=== PATIENT | female | born 1990 | race Caucasian/White ===

== ENCOUNTER 2016-05-08 12:38 | Emergency (ER) | payer MEDICAID ==
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
[2016-05-08] MEDS ORDERED: LORAZEPAM 0.5 MG TABLET PO ONE (13:03)
[2016-05-08 13:37] LABS: URINE APPEARANCE CLEAR; URINE BILIRUBIN NEGATIVE (NEGATIVE); URINE BLOOD NEGATIVE (NEGATIVE); URINE COLOR YELLOW; URINE GLUCOSE (UA) NEGATIVE (NEGATIVE); URINE KETONE NEGATIVE (NEGATIVE); URINE LEUKOCYTE ESTERASE TRACE (NEGATIVE); URINE NITRITE NEGATIVE (NEGATIVE); URINE PROTEIN NEGATIVE (NEGATIVE); URINE UROBILINOGEN 0.2 E.U./dL (0.20 - 1.00)
[2016-05-08 13:49] LABS: URINE BACTERIA FEW; URINE MUCUS HEAVY; URINE RBC 0 - 2 (NONE SEEN); URINE SQUAMOUS EPITHELIAL CELL 16 - 20 /hpf
--- NOTE | 2016-05-13 10:03 | RADIOLOGY REPORT ---
EXAM: CHEST, TWO VIEWS HISTORY: CHEST INJURY, DIFFUSE CHEST PAIN. TECHNIQUE: Two views of the chest were obtained. Comparison: Chest x-ray 06/17/15. Encounter: Initial. FINDINGS: The lungs are clear. The cardiomediastinal silhouette, diaphragm, and osseous structures are unremarkable for age. IMPRESSION: NEGATIVE CHEST EXAMINATION. JOB NUMBER: [id number] MTDD
== END 2016-05-08 14:40 | disposition home or self-care (01) ==
LOC: ER 12:38
DX: S20.212A Contusion of left front wall of thorax, initial encounter (principal); R06.02 Shortness of breath; W51.XXXA Accidental striking against or bumped into by another person, initial encounter
CPT/HCPCS: 71020; 81001; 81025; 99283; 99284

== ENCOUNTER 2016-05-23 11:22 | Emergency (ER) | payer SELFPAY ==
[2016-05-23] MEDS ORDERED: ORPHENADRINE CITRATE 60MG/2ML VIAL IM ONE (12:13)
[2016-05-23] MEDS ORDERED: PROMETHAZINE HCL 25 MG/ML VIAL IM ONE (12:13)
[2016-05-23] MEDS ORDERED: HYDROMORPHONE HCL 1 MG/ML CPJ IM ONE (12:13)
[2016-05-23] MEDS ORDERED: KETOROLAC 30 MG/ML VIAL IM ONE (12:13)
--- NOTE | 2016-05-23 12:25 | Emergency Department Record ---
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 the pain is in the lower back on the right and radiates down the right leg with some tingling in her toes. no problems with bowel or bladder MD Complaint: Back pain Onset/Timin -: Days(s) Similar Symptoms Previously: No Place: Work Radiation: Right leg Severity: Moderate, Severe Severity scale (1-10): 9 Quality: Sharp Consistency: Intermittent Improves With: Immobilization Worsens With: Movement Context: While lifting Treatments Prior to Arrival: Cold therapy, Heat therapy, Other medications - Related Data Home Medications Medication Instructions Recorded Confirmed Last Taken Albuterol Sulfate [Ventolin Hfa] 1 - 2 puff IH .EVERY 4-6 HOURS PRN 05/08/1602/2605/08/16 Previous Rx's Medication Instructions Recorded Cyclobenzaprine HCl [Flexeril] 10 mg PO TID #14 tablet 05/23/16 Hydrocodone/Acetaminophen [[place] 1 tab PO Q6H PRN #7 tab 05/23/16 5mg/325mg] Ibuprofen [Motrin 600Mg] 600 mg PO Q6H #20 tablet 05/23/16 Allergies Allergy/AdvReac Type Severity Reaction Status Date / Time marijuana Allergy ANAPHYLAXIS Verified 05/08/16 12:45 Travel Screening - Travel/Exposure Within Last 30 Days Have you traveled within the last 30 days?: No - Travel/Exposure Within Last Year Have you traveled outside the [place] in the last year?: No - Additonal Travel Details Have you been exposed to anyone with a communicable illness?: No Review of Systems Reviewed: No additional complaints except as noted below Constitutional: Reports: As per HPI. Denies: Chills, Fever, Malaise, Night sweats, Weakness, Weight change Eyes: Reports: As per HPI. Denies: Eye discharge, Eye pain, Photophobia, Vision change ENT: Reports: As per HPI. Denies: Congestion, Dental pain, Ear pain, Epistaxis , Hearing loss, Throat pain Respiratory: Reports: As per HPI. Denies: Cough, Dyspnea, Hemoptysis, Stridor, Wheezes Cardiovascular: Reports: As per HPI. Denies: Arrhythmia, Chest pain, Dyspnea on exertion, Edema, Murmurs, Orthopnea, Palpitations, Paroxysmal nocturnal dyspnea, Rheumatic Fever, Syncope Endocrine: Reports: As per HPI. Denies: Fatigue, Heat or cold intolerance, Polydipsia, Polyuria Gastrointestinal: Reports: As per HPI. Denies: Abdominal pain, Constipation, Diarrhea, Hematemesis, Hematochezia, Melena, Nausea, Vomiting Genitourinary: Reports: As per HPI. Denies: Abnormal menses, Discharge, Dyspareunia, Dysuria, Frequency, Hematuria, Incontinence, Retention, Urgency Musculoskeletal: Reports: As per HPI. Denies: Arthralgia, Back pain, Gout, Joint swelling, Myalgia, Neck pain Skin: Reports: As per HPI. Denies: Bruising, Change in color, Change in hair/ nails, Lesions, Pruritus, Rash Neurological: Reports: As per HPI. Denies: Abnormal gait, Confusion, Headache, Numbness, Paresthesias, Seizure, Tingling, Tremors, Vertigo, Weakness Psychiatric: Reports: As per HPI. Denies: Anxiety, Auditory hallucinations, Depression, Homicidal thoughts, Suicidal thoughts, Visual hallucinations Hematological/Lymphatic: Reports: As per HPI. 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) - RESPIRATORY Hx Respiratory Disorders: Yes Hx Bronchitis: Yes (chronic) Hx Pneumonia: Yes (<1yr ago) - CARDIOVASCULAR Hx Cardio Disorders: No - NEURO Hx Neuro Disorders: Yes Hx Headaches: Yes (hx of migraines) - GI Hx GI Disorders: No - Hx Genitourinary Disorders: No - ENDOCRINE Hx Endocrine Disorders: No Hx Diabetes: No Hx Thyroid Disease: No - MUSCULOSKELETAL Hx Musculoskeletal Disorders: No - PSYCH Hx Psych Problems: Yes Comment:: Autism - HEMATOLOGY/ONCOLOGY Hx Hematology/Oncology Disorders: No Family Medical History Any Significant Family History?: Yes Hx Alcohol Use: Father, Brother/Sister Hx Anxiety: Father, Mother, Brother/Sister, Grandparents Hx Depression: Father, Mother, Brother/Sister, Grandparents Hx Diabetes: Mother, Grandparents Hx Heart Disease: Father, Mother, Grandparents Hx HTN: Father, Mother, Grandparents Hx Kidney Disease: Mother Hx Stroke: Mother, Grandparents *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 negative: External canal tenderness Nasal Exam: Normal inspection. negative: Discharge, Sinus tenderness Mouth exam: Normal external inspection, Tongue normal Teeth exam: Normal inspection. negative: Dental caries Throat exam: Normal inspection. negative: Tonsillar erythema, Tonsillar exudate - Neck Neck exam: Normal inspection, Full ROM. negative: Tenderness - Respiratory Respiratory exam: Normal lung sounds bilaterally. negative: Respiratory distress - Cardiovascular Cardiovascular Exam: Regular rate, Normal rhythm, Normal heart sounds - GI/Abdominal GI/Abdominal exam: Soft, Normal bowel sounds. negative: Tenderness - Rectal Rectal exam: Deferred - exam: Deferred - Extremities Extremities exam: Normal inspection, Full ROM, Normal capillary refill. negative: Tenderness - Back Back exam: Reports: Muscle spasm, Paraspinal tenderness, Tenderness. Denies: Full ROM, Rash noted - Neurological Neurological exam: Alert, CN II-XII intact, Normal gait, Oriented X3 - Psychiatric Psychiatric exam: Normal affect, Normal mood - Skin Skin exam: Dry, Intact, Normal color, Warm Course Vital Signs 05/23/16 11:28 Temperature 97.2 F L Pulse Rate 72 Respiratory 14 Rate Blood Pressure 130/82 Pulse Ox 97 Disposition Disposition: Discharge Clinical Impression: Acute Lumbar Radiculopathy Disposition: Home, Self-Care Condition: (1) Good Instructions: Lumbar Radiculopathy (ED) Additional Instructions: follow up with family doctor. ice to sore area for 2 days. no lifting more then 5lbs for 5 days. Prescriptions: Cyclobenzaprine HCl [Flexeril] 10 mg PO TID #14 tablet Ibuprofen [Motrin 600Mg] 600 mg PO Q6H #20 tablet Hydrocodone/Acetaminophen [[place] 5mg/325mg] 1 tab PO Q6H PRN #7 tab PRN Reason: Pain - General Forms: Patient Portal Access
== END 2016-05-23 14:18 | disposition home or self-care (01) ==
LOC: ER 11:22
DX: M54.16 Radiculopathy, lumbar region (principal)
CPT/HCPCS: J1885; J1170; 96372; 99283; J2360; J2550

== ENCOUNTER 2016-05-31 19:47 | Emergency (ER) | payer SELFPAY ==
[2016-05-31] MEDS ORDERED: KETOROLAC 60 MG/2 ML VIAL IM STA (20:44)
[2016-05-31] MEDS ORDERED: DIAZEPAM 5 MG/1 ML TUBX IM ONE (20:44)
--- NOTE | 2016-05-31 20:49 | Emergency Department Record ---
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 Patient reports that she has taken Flexeril and Ibuprofen at home which have helped somewhat as well. Patient denies numbness, tingling, lower extremity weakness, or urinary retention symptoms. Patient denies health problems other than being "overweight". MD Complaint: Back pain, Back injury Onset/Timin -: Week(s) Similar Symptoms Previously: Yes Place: Home Radiation: None Severity: Mild Severity scale (1-10): 7 Quality: Other Consistency: Other Improves With: None Worsens With: None Context: Unknown Associated Symptoms: Denies other symptoms Treatments Prior to Arrival: NSAIDS, Other - Related Data Home Medications Medication Instructions Recorded Confirmed Last Taken Famotidine [Pepcid] 20 mg PO DAILY 05/31/16 05/31/16 Unknown Hydroxyzine Pamoate [Vistaril] 50 mg PO ASDIR 05/31/16 05/31/16 Unknown Previous Rx's Medication Instructions Recorded Diazepam [Valium] 5 mg PO Q8H #10 tab 05/31/16 Naproxen [Naprosyn] 500 mg PO Q12H #30 tab. 05/31/16 Allergies Allergy/AdvReac Type Severity Reaction Status Date / Time marijuana Allergy ANAPHYLAXIS Verified 05/08/16 12:45 scallops Allergy HIVES Verified 05/31/16 20:33 Travel Screening - Travel/Exposure Within Last 30 Days Have you traveled within the last 30 days?: No - Travel/Exposure Within Last Year Have you traveled outside the [place] in the last year?: No - Additonal Travel Details Have you been exposed to anyone with a communicable illness?: No - Travel Symptoms Symptom Screening: None Review of Systems Constitutional: Denies: Chills, Fever, Malaise, Night sweats Eyes: Denies: Eye discharge, Eye pain ENT: Denies: Congestion, Ear pain, Epistaxis Respiratory: Denies: Cough, Dyspnea Cardiovascular: Denies: Chest pain, Dyspnea on exertion Endocrine: Denies: Fatigue, Heat or cold intolerance Gastrointestinal: Denies: Abdominal pain, Nausea, Vomiting Genitourinary: Denies: Dysuria, Frequency, Hematuria Musculoskeletal: Reports: Back pain. 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) - RESPIRATORY Hx Respiratory Disorders: Yes Hx Bronchitis: Yes (chronic) Hx Pneumonia: Yes (<1yr ago) - CARDIOVASCULAR Hx Cardio Disorders: No - NEURO Hx Neuro Disorders: Yes Hx Headaches: Yes (hx of migraines) - GI Hx GI Disorders: No - Hx Genitourinary Disorders: No - ENDOCRINE Hx Endocrine Disorders: No Hx Diabetes: No Hx Thyroid Disease: No - MUSCULOSKELETAL Hx Musculoskeletal Disorders: No - PSYCH Hx Psych Problems: Yes Comment:: Autism - HEMATOLOGY/ONCOLOGY Hx Hematology/Oncology Disorders: No Family Medical History Any Significant Family History?: No Hx Alcohol Use: Father, Brother/Sister Hx Anxiety: Father, Mother, Brother/Sister, Grandparents Hx Depression: Father, Mother, Brother/Sister, Grandparents Hx Diabetes: Mother, Grandparents Hx Heart Disease: Father, Mother, Grandparents Hx HTN: Father, Mother, Grandparents Hx Kidney Disease: Mother Hx Stroke: Mother, Grandparents *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 negative: Conjunctival injection, Periorbital swelling, Periorbital tenderness, Scleral icterus - ENT Ear exam: negative: Auricular hematoma, Auricular trauma Nasal Exam: negative: Active bleeding, Discharge, Dried blood, Foreign body Mouth exam: negative: Drooling, Laceration, Muffled voice, Tongue elevation - Neck Neck exam: Normal inspection. negative: Meningismus, Tenderness - Respiratory Respiratory exam: Normal lung sounds bilaterally. negative: Rales, Respiratory distress, Rhonchi, Stridor - Cardiovascular Cardiovascular Exam: Regular rate, Normal rhythm, Normal heart sounds - Rectal Rectal exam: Deferred - exam: Deferred - Extremities Extremities exam: Normal inspection. negative: Calf tenderness, Pedal edema, Tenderness - Back Back exam: Reports: Paraspinal tenderness (right lumbar region). Denies: Rash noted - Neurological Neurological exam: Alert, Oriented X3. negative: Motor sensory deficit - Psychiatric Psychiatric exam: Normal affect, Normal mood - Skin Skin exam: Normal color. negative: Abrasion Type of lesion: negative: abrasion Course Vital Signs 05/31/16 20:15 Temperature 98.7 F Pulse Rate 75 Respiratory 20 Rate Blood Pressure 133/84 Pulse Ox 99 - Reevaluation(s) Reevaluation #1: 05/31/16 21:56 UA reviewed and appears normal. Lumbar spine: Mild degenerative changes, transition segment at S1, nothing acute. Patient was reassessed, now laying on her side on her mobile phone, smiling, and appears significantly more comfortable on examination. Patient has no clinical signs or historical features c/w spinal compression syndrome. Patient appears stable for discharge at this time on Valium and Naprosyn as directed. 05/31/16 22:01 Disposition Disposition: Discharge Clinical Impression: Low back strain Qualifiers: Encounter type: initial encounter Qualified Code(s): S39.012A - Strain of muscle, fascia and tendon of lower back, initial encounter Disposition: Home, Self-Care Condition: (2) Stable Instructions: Low Back Strain (ED) Additional Instructions: Return to ED if your symptoms worsen or if you have any concerns. Valium and Naprosyn as directed. Follow-up with your family doctor in 3-5 days as directed. Prescriptions: Naproxen [Naprosyn] 500 mg PO Q12H #30 tab. Diazepam [Valium] 5 mg PO Q8H #10 tab Forms: Patient Portal Access Time of Disposition: 22:01
[2016-05-31 20:50] LABS: URINE APPEARANCE CLEAR; URINE BILIRUBIN NEGATIVE (NEGATIVE); URINE BLOOD NEGATIVE (NEGATIVE); URINE COLOR YELLOW; URINE GLUCOSE (UA) NEGATIVE (NEGATIVE); URINE KETONE NEGATIVE (NEGATIVE); URINE LEUKOCYTE ESTERASE NEGATIVE (NEGATIVE); URINE NITRITE NEGATIVE (NEGATIVE); URINE PROTEIN NEGATIVE (NEGATIVE); URINE UROBILINOGEN 0.2 E.U./dL (0.20 - 1.00)
[2016-05-31 20:52] LABS: HCG,QUALITATIVE URINE NEGATIVE (NEGATIVE)
== END 2016-05-31 22:16 | disposition home or self-care (01) ==
LOC: ER 19:47
DX: S39.012A Strain of muscle, fascia and tendon of lower back, initial encounter (principal); X50.9XXA Other and unspecified overexertion or strenuous movements or postures, initial encounter; Y93.F2 Activity, caregiving, lifting; Y92.129 Unspecified place in nursing home as the place of occurrence of the external cause; Y99.0 Civilian activity done for income or pay
CPT/HCPCS: 72100; 81003; 81025; 96372; 99283; 99284; J1885; J3360

== ENCOUNTER 2016-06-01 20:58 | Emergency (ER) | payer SELFPAY ==
--- NOTE | 2016-06-01 21:28 | Emergency Department Record ---
History of Present Illness - General Chief complaint: Allergic Reaction Stated complaint: NO FEELING IN R SIDE OF FACE Time Seen by Provider: 06/01/16 21:22 Source: Patient Mode of Arrival: Ambulatory Limitations: No limitations - History of Present Illness Initial Comments: 25 yo female returns to ED with a CC of right sided facial numbness that begins approximately 45 minutes after taking Valium that was previously prescribed for a low back strain and lasts 3-4 hours after taking the medication before resolving. Patient reports that she has taken the medication at 6:00 AM, 3:00 PM, and 7:00 PM tonight with the same effects. Patient denies facial muscle weakness or paralysis, rash, difficulty breathing/swallowing, or other neurologic complaint. Patient denies any focal weakness on examination. Onset/Timin -: Days(s) Exposure: Medication Symptoms: Other (numbness) Severity: Mild Treatment Prior to Arrival: None Previous Allergy History: None - Related Data Home Medications Medication Instructions Recorded Confirmed Last Taken Famotidine [Pepcid] 20 mg PO DAILY 05/31/16 05/31/16 Unknown Hydroxyzine Pamoate [Vistaril] 50 mg PO ASDIR 05/31/16 05/31/16 Unknown Previous Rx's Medication Instructions Recorded Diazepam [Valium] 5 mg PO Q8H #10 tab 05/31/16 Naproxen [Naprosyn] 500 mg PO Q12H #30 tab 05/31/16 Cyclobenzaprine HCl [Flexeril] 10 mg PO TID PRN #5 tablet 06/01/16 Allergies Allergy/AdvReac Type Severity Reaction Status Date / Time marijuana Allergy ANAPHYLAXIS Verified 05/08/16 12:45 scallops Allergy HIVES Verified 05/31/16 20:33 Review of Systems Constitutional: Denies: Chills, Fever, Malaise, Night sweats Eyes: Denies: Eye discharge, Eye pain ENT: Denies: Congestion, Ear pain, Epistaxis Respiratory: Denies: Cough, Dyspnea Cardiovascular: Denies: Chest pain, Edema Endocrine: Denies: Fatigue, Heat or cold intolerance Gastrointestinal: Denies: Abdominal pain, Nausea, Vomiting Genitourinary: Denies: Dysuria, Frequency, Hematuria, Incontinence Musculoskeletal: Reports: Back pain. Denies: Arthralgia Skin: Denies: Bruising, Change in color Neurological: Reports: Numbness. 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) - RESPIRATORY Hx Respiratory Disorders: Yes Hx Bronchitis: Yes (chronic) Hx Pneumonia: Yes (<1yr ago) - CARDIOVASCULAR Hx Cardio Disorders: No - NEURO Hx Neuro Disorders: Yes Hx Headaches: Yes (hx of migraines) - GI Hx GI Disorders: No - Hx Genitourinary Disorders: No - ENDOCRINE Hx Endocrine Disorders: No Hx Diabetes: No Hx Thyroid Disease: No - MUSCULOSKELETAL Hx Musculoskeletal Disorders: No - PSYCH Hx Psych Problems: Yes Comment:: Autism - HEMATOLOGY/ONCOLOGY Hx Hematology/Oncology Disorders: No Family Medical History Hx Alcohol Use: Father, Brother/Sister Hx Anxiety: Father, Mother, Brother/Sister, Grandparents Hx Depression: Father, Mother, Brother/Sister, Grandparents Hx Diabetes: Mother, Grandparents Hx Heart Disease: Father, Mother, Grandparents Hx HTN: Father, Mother, Grandparents Hx Kidney Disease: Mother Hx Stroke: Mother, Grandparents *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 negative: Conjunctival injection, Periorbital swelling, Periorbital tenderness, Scleral icterus - ENT Ear exam: negative: Auricular hematoma, Auricular trauma Nasal Exam: negative: Active bleeding, Discharge, Dried blood, Sinus tenderness Mouth exam: negative: Drooling, Laceration, Tongue elevation - Neck Neck exam: Normal inspection. negative: Meningismus, Tenderness - Respiratory Respiratory exam: Normal lung sounds bilaterally. negative: Respiratory distress, Rhonchi, Stridor, Wheezes - Cardiovascular Cardiovascular Exam: Regular rate, Normal rhythm, Normal heart sounds - GI/Abdominal GI/Abdominal exam: Soft. negative: Rebound, Rigid, Tenderness - Rectal Rectal exam: Deferred - exam: Deferred - Extremities Extremities exam: negative: Calf tenderness, Joint swelling, Tenderness - Neurological Neurological exam: Alert, CN II-XII intact, Normal gait, Oriented X3, Other (No evidence for Harry's palsy or any other objective neurologic finding on examination other than reduced sensation to the right forehead and right face) - Psychiatric Psychiatric exam: Normal affect, Normal mood - Skin Skin exam: Normal color. negative: Abrasion Type of lesion: negative: abrasion Course - Reevaluation(s) Reevaluation #1: 06/01/16 21:28 On examination, there is no focal motor deficits on examination. Patient's symptoms are subjective in nature and resolve after taking the medication. Patient reports taking Flexeril without similar symptoms and tolerates it well. Will prescribe #5 Flexeril until the patient can follow-up with Eloisa Martinez on Wednesday. Disposition Disposition: Discharge Clinical Impression: Adverse effect of drug Disposition: Home, Self-Care Condition: (2) Stable Instructions: Adverse Drug Reaction (ED) Additional Instructions: Return to ED if your symptoms worsen or if you have any concerns. Flexeril as directed. Discontinue Valium as directed. Follow-up with Eloisa Martinez Wednesday as scheduled. Prescriptions: Cyclobenzaprine HCl [Flexeril] 10 mg PO TID PRN #5 tablet PRN Reason: Muscle Spasms Forms: Patient Portal Access Time of Disposition: 21:32
== END 2016-06-01 21:39 | disposition home or self-care (01) ==
LOC: ER 20:58
DX: R20.0 Anesthesia of skin (principal); T42.4X5A Adverse effect of benzodiazepines, initial encounter
CPT/HCPCS: 99282

== ENCOUNTER 2016-08-24 03:29 | Emergency (ER) | payer BC, MEDICAID ==
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
[2016-08-24] MEDS ORDERED: 0.9 % SODIUM CHLORIDE 1,000 ML BAG IV ONE (04:50)
[2016-08-24 05:12] LABS: BASO % 0.2 % (0-6); EOS % 3.3 % (0-6); GRAN % 55.9 % (47-80); HEMATOCRIT 39.1 % (35.0-47.0); HEMOGLOBIN 12.3 gm/dl (11.6-16.0); LYMPH % 34.5 % (16-45); MEAN CELL VOLUME 81.8 fl (81-97); MEAN CORPUSCULAR HEMOGLOBIN 25.7 pg (27-33); MEAN CORPUSCULAR HGB CONC 31.5 g/dl (32-36); MEAN PLATELET VOLUME 9.8 fl (7.4-10.4); MONO % 6.1 % (0-9); PLATELET COUNT 319 K/uL (130-400); RED BLOOD COUNT 4.78 M/uL (3.80-5.40); RED CELL DISTRIBUTION WIDTH 13.8 % (11.5-14.5); WHITE BLOOD COUNT W/O DIFF 12.4 K/uL (4.2-12.2)
[2016-08-24 05:15] LABS: URINE APPEARANCE CLEAR; URINE BILIRUBIN NEGATIVE (NEGATIVE); URINE BLOOD NEGATIVE (NEGATIVE); URINE COLOR YELLOW; URINE GLUCOSE (UA) NEGATIVE (NEGATIVE); URINE KETONE NEGATIVE (NEGATIVE); URINE LEUKOCYTE ESTERASE NEGATIVE (NEGATIVE); URINE NITRITE NEGATIVE (NEGATIVE); URINE PROTEIN NEGATIVE (NEGATIVE); URINE UROBILINOGEN 0.2 E.U./dL (0.20 - 1.00)
[2016-08-24 05:18] LABS: HCG,QUALITATIVE URINE NEGATIVE (NEGATIVE)
[2016-08-24 05:22] LABS: ANION GAP 9.3 (7-16); BLOOD UREA NITROGEN 14 mg/dL (7-17); CARBON DIOXIDE 23.7 mmol/L (22-30); CREATININE 0.6 mg/dL (0.52-1.04); EST GLOMERULAR FILTRATION RATE > 60 ml/min; GLUCOSE,RANDOM 106 mg/dL (70-110)
[2016-08-24 05:23] LABS: INR 0.91; PARTIAL THROMBOPLASTIN TIME 27.4 SECONDS (24.5-39.1); PROTHROMBIN TIME (PATIENT) 10.3 SECONDS (9.5-12.1)
[2016-08-24] MEDS ORDERED: ACETAMINOPHEN 500 MG TABLET PO ONE (05:38)
[2016-08-24] MEDS ORDERED: ONDANSETRON HCL IV 4 MG/2 ML VIAL IM ONE (06:46)
[2016-08-24] MEDS ORDERED: HYDROMORPHONE HCL 1 MG/ML CPJ IM ONE (06:46)
[2016-08-25 16:00] LABS: GC SPECIMEN TYPE Vaginal
== END 2016-08-24 07:50 | disposition home or self-care (01) ==
LOC: ER 03:29
DX: E28.2 Polycystic ovarian syndrome (principal); N93.9 Abnormal uterine and vaginal bleeding, unspecified
CPT/HCPCS: 99284 ×2; 96372; 85025; 85730; 85610; 80048; 81003; 84703; 81025; Q0111; J2405; J1170; 87210

== ENCOUNTER 2016-10-09 01:34 | Emergency (ER) | payer SELFPAY ==
--- NOTE | 2016-10-09 03:08 | Emergency Department Record ---
History of Present Illness - General Chief complaint: Pain Stated complaint: RT RIB PAIN Time Seen by Provider: 10/09/16 02:59 Source: Patient Mode of Arrival: Ambulatory - History of Present Illness Initial comments: Patient states that her 40 pound toddler jumped on her right lower ribs prior to arrival while they were playing. It knocked the wind out of her and now the lower ribs are tender and it hurts to take a deep breath. Onset/Timin -: Hour(s) Location: Right Severity scale (1-10): 8 Quality: Aching Consistency: Constant, Getting worse Improves with: Nothing Worsens with: Nothing - Related Data Previous Rx's Medication Instructions Recorded Hydrocodone/Acetaminophen [[place] 1 each PO Q8HR PRN #10 tablet 10/09/16 5-325 Tablet] Allergies Allergy/AdvReac Type Severity Reaction Status Date / Time marijuana Allergy ANAPHYLAXIS Verified 08/24/16 03:35 scallops Allergy HIVES Verified 08/24/16 03:35 Travel Screening - Travel/Exposure Within Last 30 Days Have you traveled within the last 30 days?: No Review of Systems Reviewed: No additional complaints except as noted below Constitutional: Reports: As per HPI. Denies: Chills, Fever, Malaise, Night sweats, Weakness, Weight change Eyes: Reports: As per HPI. Denies: Eye discharge, Eye pain, Photophobia, Vision change ENT: Reports: As per HPI. Denies: Congestion, Dental pain, Ear pain, Epistaxis , Hearing loss, Throat pain Respiratory: Reports: As per HPI. Denies: Cough, Dyspnea, Hemoptysis, Stridor, Wheezes Cardiovascular: Reports: As per HPI. Denies: Arrhythmia, Chest pain, Dyspnea on exertion, Edema, Murmurs, Orthopnea, Palpitations, Paroxysmal nocturnal dyspnea, Rheumatic Fever, Syncope Endocrine: Reports: As per HPI. Denies: Fatigue, Heat or cold intolerance, Polydipsia, Polyuria Gastrointestinal: Reports: As per HPI. Denies: Abdominal pain, Constipation, Diarrhea, Hematemesis, Hematochezia, Melena, Nausea, Vomiting Genitourinary: Reports: As per HPI. Denies: Abnormal menses, Discharge, Dyspareunia, Dysuria, Frequency, Hematuria, Incontinence, Retention, Urgency Musculoskeletal: Reports: As per HPI. Denies: Arthralgia, Back pain, Gout, Joint swelling, Myalgia, Neck pain Skin: Reports: As per HPI. Denies: Bruising, Change in color, Change in hair/ nails, Lesions, Pruritus, Rash Neurological: Reports: As per HPI. Denies: Abnormal gait, Confusion, Headache, Numbness, Paresthesias, Seizure, Tingling, Tremors, Vertigo, Weakness Psychiatric: Reports: As per HPI. Denies: Anxiety, Auditory hallucinations, Depression, Homicidal thoughts, Suicidal thoughts, Visual hallucinations Hematological/Lymphatic: Reports: As per HPI. 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) - RESPIRATORY Hx Respiratory Disorders: Yes Hx Bronchitis: Yes (chronic) Hx Pneumonia: Yes (<1yr ago) - CARDIOVASCULAR Hx Cardio Disorders: No - NEURO Hx Neuro Disorders: Yes Hx Headaches: Yes (hx of migraines) - GI Hx GI Disorders: No - Hx Genitourinary Disorders: No - ENDOCRINE Hx Endocrine Disorders: No Hx Diabetes: No Hx Thyroid Disease: No - MUSCULOSKELETAL Hx Musculoskeletal Disorders: No - PSYCH Hx Psych Problems: Yes Comment:: Autism - HEMATOLOGY/ONCOLOGY Hx Hematology/Oncology Disorders: No Family Medical History Any Significant Family History?: Yes Hx Alcohol Use: Father, Brother/Sister Hx Anxiety: Father, Mother, Brother/Sister, Grandparents Hx Depression: Father, Mother, Brother/Sister, Grandparents Hx Diabetes: Mother, Grandparents Hx Heart Disease: Father, Mother, Grandparents Hx HTN: Father, Mother, Grandparents Hx Kidney Disease: Mother Hx Stroke: Mother, Grandparents *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 negative: External canal tenderness Nasal Exam: Normal inspection. negative: Discharge, Sinus tenderness Mouth exam: Normal external inspection, Tongue normal Teeth exam: Normal inspection. negative: Dental caries Throat exam: Normal inspection. negative: Tonsillar erythema, Tonsillar exudate - Neck Neck exam: Normal inspection, Full ROM. negative: Tenderness - Respiratory Respiratory exam: Normal lung sounds bilaterally, Chest wall tenderness (right lower ribs diffusely, no crepitance, no sub Q emphysema). negative: Respiratory distress - Cardiovascular Cardiovascular Exam: Regular rate, Normal rhythm, Normal heart sounds - GI/Abdominal GI/Abdominal exam: Soft, Normal bowel sounds. negative: Tenderness - Rectal Rectal exam: Deferred - exam: Deferred - Extremities Extremities exam: Normal inspection, Full ROM, Normal capillary refill. negative: Calf tenderness, Pedal edema, Tenderness - Back Back exam: Reports: Normal inspection, Full ROM. Denies: Muscle spasm, Rash noted, Tenderness - Neurological Neurological exam: Alert, Normal gait, Oriented X3, Reflexes normal - Psychiatric Psychiatric exam: Normal affect, Normal mood - Skin Skin exam: Dry, Intact, Normal color, Warm Course Vital Signs 10/09/16 01:44 Temperature 97.6 F Pulse Rate [ 81 Pulse Ox Probe] Respiratory 16 Rate Blood Pressure 116/94 [Left Arm] Pulse Ox 96 - Reevaluation(s) Reevaluation #1: Patient instructed on how to deep breathe 4 times daily using a pillow to splint her ribs. Patient aware neg CXR reading is preliminary. 10/09/16 03:08 Medical Decision Making - Management Options MDM Management: No Additional Work-up Planned - Data Complexity MDM Data: X-Ray Ordered and/or Reviewed (CXR: Neg per ED physician.) - Lab Data Lab Results 10/09/16 Range/Units 02:02 Urine HCG, Qual Negative (NEGATIVE) Disposition Disposition: Discharge Clinical Impression: Contusion of rib on right side Qualifiers: Encounter type: initial encounter Qualified Code(s): S20.211A - Contusion of right front wall of thorax, initial encounter Disposition: Home, Self-Care Condition: (1) Good Instructions: Rib Contusion (ED) Additional Instructions: No lifting bending twisting. Cough and deep breathe 4 times daily while splinting your ribs with a pillow. [place] for sleep if needed as directed. Follow up with PCP next week in office as needed. Prescriptions: Hydrocodone/Acetaminophen [[place] 5-325 Tablet] 1 each PO Q8HR PRN #10 tablet PRN Reason: Pain - Severe (8-10) Forms: Patient Portal Access
[2016-10-09] MEDS ORDERED: HYDROCODONE/APAP 5/325MG TABLET PO ONE (03:09)
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
== END 2016-10-09 03:31 | disposition home or self-care (01) ==
LOC: ER 01:34
DX: S20.211A Contusion of right front wall of thorax, initial encounter (principal); Y93.39 Activity, other involving climbing, rappelling and jumping off
CPT/HCPCS: 71020; 81025; 99283

== ENCOUNTER 2016-10-14 17:28 | Emergency (ER) | payer SELFPAY ==
--- NOTE | 2016-10-14 17:58 | Emergency Department Record ---
History of Present Illness - General Chief complaint: Extremity Problem Stated complaint: LEFT SHOULDER PAIN Time Seen by Provider: 10/14/16 17:55 Source: Patient, RN notes reviewed Mode of Arrival: Ambulatory - History of Present Illness Initial comments: patient fell 2 hours prior to ED Arrival and complaining of right wrist pain and left wrist,left elbow and left shoulder pain. No deformity seen. Onset/Timin -: Minutes(s) Location: Left, Right, Arm, Shoulder History of Same: No Radiation: None Severity scale (1-10): 10 Quality: Sharp Consistency: Constant Improves with: Nothing Worsens with: Exertion Associated Symptoms: Denies other symptoms - Related Data Home Medications Medication Instructions Recorded Confirmed Last Taken Hydroxyzine Pamoate [Hydroxyzine 25 mg PO ASDIR 10/14/16 10/14/16 10/07/16 Pamoate] Previous Rx's Medication Instructions Recorded Hydrocodone/Acetaminophen [[place] 1 each PO Q8HR PRN #10 tablet 10/09/16 5-325 Tablet] Naproxen [Naprosyn] 500 mg PO Q12H #20 tab. 10/14/16 Allergies Allergy/AdvReac Type Severity Reaction Status Date / Time marijuana Allergy ANAPHYLAXIS Verified 10/14/16 17:33 scallops Allergy HIVES Verified 10/14/16 17:33 Travel Screening - Travel/Exposure Within Last 30 Days Have you traveled within the last 30 days?: No - Travel/Exposure Within Last Year Have you traveled outside the [place] in the last year?: No - Additonal Travel Details Have you been exposed to anyone with a communicable illness?: No - Travel Symptoms Symptom Screening: None Review of Systems Reviewed: No additional complaints except as noted below Constitutional: Reports: As per HPI. Denies: Chills, Fever, Malaise, Night sweats, Weakness, Weight change Eyes: Reports: As per HPI. Denies: Eye discharge, Eye pain, Photophobia, Vision change ENT: Reports: As per HPI. Denies: Congestion, Dental pain, Ear pain, Epistaxis , Hearing loss, Throat pain Respiratory: Reports: As per HPI. Denies: Cough, Dyspnea, Hemoptysis, Stridor, Wheezes Cardiovascular: Reports: As per HPI. Denies: Arrhythmia, Chest pain, Dyspnea on exertion, Edema, Murmurs, Orthopnea, Palpitations, Paroxysmal nocturnal dyspnea, Rheumatic Fever, Syncope Endocrine: Reports: As per HPI. Denies: Fatigue, Heat or cold intolerance, Polydipsia, Polyuria Gastrointestinal: Reports: As per HPI. Denies: Abdominal pain, Constipation, Diarrhea, Hematemesis, Hematochezia, Melena, Nausea, Vomiting Genitourinary: Reports: As per HPI. Denies: Abnormal menses, Discharge, Dyspareunia, Dysuria, Frequency, Hematuria, Incontinence, Retention, Urgency Musculoskeletal: Reports: As per HPI, Other (pain right wrist and left wrist elbow and shoulder). Denies: Arthralgia, Back pain, Gout, Joint swelling, Myalgia, Neck pain Skin: Reports: As per HPI. Denies: Bruising, Change in color, Change in hair/ nails, Lesions, Pruritus, Rash Neurological: Reports: As per HPI. Denies: Abnormal gait, Confusion, Headache, Numbness, Paresthesias, Seizure, Tingling, Tremors, Vertigo, Weakness Psychiatric: Reports: As per HPI. Denies: Anxiety, Auditory hallucinations, Depression, Homicidal thoughts, Suicidal thoughts, Visual hallucinations Hematological/Lymphatic: Reports: As per HPI. 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) - RESPIRATORY Hx Respiratory Disorders: Yes Hx Bronchitis: Yes (chronic) Hx Pneumonia: Yes (<1yr ago) - CARDIOVASCULAR Hx Cardio Disorders: No - NEURO Hx Neuro Disorders: Yes Hx Headaches: Yes (hx of migraines) - GI Hx GI Disorders: No - Hx Genitourinary Disorders: No - ENDOCRINE Hx Endocrine Disorders: No Hx Diabetes: No Hx Thyroid Disease: No - MUSCULOSKELETAL Hx Musculoskeletal Disorders: No - PSYCH Hx Psych Problems: Yes Comment:: Autism - HEMATOLOGY/ONCOLOGY Hx Hematology/Oncology Disorders: No Family Medical History Any Significant Family History?: Yes Hx Alcohol Use: Father, Brother/Sister Hx Anxiety: Father, Mother, Brother/Sister, Grandparents Hx Depression: Father, Mother, Brother/Sister, Grandparents Hx Diabetes: Mother, Grandparents Hx Heart Disease: Father, Mother, Grandparents Hx HTN: Father, Mother, Grandparents Hx Kidney Disease: Mother Hx Stroke: Mother, Grandparents *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 negative: External canal tenderness Nasal Exam: Normal inspection. negative: Discharge, Sinus tenderness Mouth exam: Normal external inspection, Tongue normal Teeth exam: Normal inspection. negative: Dental caries Throat exam: Normal inspection. negative: Tonsillar erythema, Tonsillar exudate - Neck Neck exam: Normal inspection, Full ROM. negative: Tenderness - Respiratory Respiratory exam: Normal lung sounds bilaterally. negative: Respiratory distress - Cardiovascular Cardiovascular Exam: Regular rate, Normal rhythm, Normal heart sounds - GI/Abdominal GI/Abdominal exam: Soft, Normal bowel sounds. negative: Tenderness - Rectal Rectal exam: Deferred - exam: Deferred - Extremities Extremities exam: Normal capillary refill, Tenderness (pain right wrist and left wrist elbow and shoulder) - Back Back exam: Reports: Normal inspection, Full ROM. Denies: Muscle spasm, Rash noted, Tenderness - Neurological Neurological exam: Alert, Normal gait, Oriented X3, Reflexes normal - Psychiatric Psychiatric exam: Normal affect, Normal mood - Skin Skin exam: Dry, Intact, Normal color, Warm Course Vital Signs 10/14/16 17:36 Temperature 97.4 F L Pulse Rate 76 Respiratory 18 Rate Blood Pressure 137/91 Pulse Ox 96 Medical Decision Making - Data Complexity MDM Data: X-Ray Ordered and/or Reviewed (left shoulder neg and right wrist neg) Disposition Clinical Impression: Contusion of elbow, left Qualifiers: Encounter type: initial encounter Qualified Code(s): S50.02XA - Contusion of left elbow, initial encounter Sprain of shoulder Qualifiers: Encounter type: initial encounter Shoulder sprain type: unspecified sprain Laterality: right Qualified Code(s): S43.401A - Unspecified sprain of right shoulder joint, initial encounter Sprain of left shoulder Qualifiers: Encounter type: initial encounter Shoulder sprain type: unspecified sprain Qualified Code(s): S43.402A - Unspecified sprain of left shoulder joint, initial encounter Right wrist sprain Qualifiers: Encounter type: initial encounter Qualified Code(s): S63.501A - Unspecified sprain of right wrist, initial encounter Disposition: Home, Self-Care Condition: (1) Good Instructions: Shoulder Sprain (ED), Wrist Sprain (ED) Additional Instructions: follow up with family in 5 days Prescriptions: Naproxen [Naprosyn] 500 mg PO Q12H #20 tab.dr Forms: Patient Portal Access Time of Disposition: 18:54
--- NOTE | 2016-10-15 07:40 | RADIOLOGY REPORT ---
EXAM: LEFT SHOULDER HISTORY: PATIENT FELL WITH LEFT SHOULDER PAIN. TECHNIQUE: Three views of the left shoulder were obtained. Comparison: None. Encounter: Initial. FINDINGS: No definite fracture or dislocation of the left shoulder evident. IMPRESSION: THE LEFT SHOULDER APPEARS NEGATIVE. JOB NUMBER: [id number] MTDD
--- NOTE | 2016-10-15 07:43 | RADIOLOGY REPORT ---
EXAM: RIGHT WRIST HISTORY: PATIENT FELL WITH RIGHT WRIST PAIN. TECHNIQUE: Four views of the right wrist were obtained. Comparison: None. Encounter: Initial. FINDINGS: No definite fracture or dislocation of the right wrist evident. If symptoms persist, however, a follow-up study in a week or so would be suggested to exclude a currently radiographically occult fracture. IMPRESSION: NO DEFINITE FRACTURE OF THE RIGHT WRIST IDENTIFIED. JOB NUMBER: [id number] MTDD
--- NOTE | 2016-10-15 07:44 | RADIOLOGY REPORT ---
EXAM: LEFT ELBOW HISTORY: PATIENT FELL TODAY WITH PAIN IN THE LEFT WRIST AND ELBOW. TECHNIQUE: Four views of the left elbow were obtained. Comparison: No prior left elbow series. Encounter: Initial. FINDINGS: The left elbow appears intact with no definite fracture, dislocation , or joint effusion identified. IMPRESSION: THE LEFT ELBOW APPEARS NEGATIVE. JOB NUMBER: [id number] MTDD
--- NOTE | 2016-10-15 07:47 | RADIOLOGY REPORT ---
EXAM: LEFT WRIST HISTORY: PATIENT FELL TODAY WITH LEFT WRIST PAIN. TECHNIQUE: Four views of the left wrist were obtained. Comparison: None. Encounter: Initial. FINDINGS: No definite fracture or dislocation of the left wrist identified, however, if symptoms persist, a follow-up study in a week or so would be suggested to exclude a currently radiographically occult fracture. IMPRESSION: NO DEFINITE FRACTURE OF THE LEFT WRIST IDENTIFIED. JOB NUMBER: [id number] MTDD
== END 2016-10-14 19:03 | disposition home or self-care (01) ==
LOC: ER 17:28
DX: S50.02XA Contusion of left elbow, initial encounter (principal); S43.401A Unspecified sprain of right shoulder joint, initial encounter; S43.402A Unspecified sprain of left shoulder joint, initial encounter; S63.501A Unspecified sprain of right wrist, initial encounter; W19.XXXA Unspecified fall, initial encounter
CPT/HCPCS: 99283; 99284

== ENCOUNTER 2017-01-21 10:43 | Emergency (ER) | payer MEDICAID ==
--- NOTE | 2017-01-21 11:13 | Emergency Department Record ---
History of Present Illness - General Chief Complaint: Back Pain/Injury Stated Complaint: LOWER BACK & PELVIC PAIN Time Seen by Provider: 01/21/17 11:12 Source: Patient Mode of Arrival: Ambulatory Limitations: No limitations - History of Present Illness Initial Comments: The patient is here due to worsening of her chronic back and pelvic pain that she has had for over a year. She does see Eloisa Garcia in the Family practice clinic and due to her pain medicine not working she was sent to the ER. She states the pain is not new and is a sharp stabbing pain in the lower back and pelvic area. She has had multiple evaluations for it at [facility] including multiple abdominal CT scans and a pelvic US 12/01/16 but no specific diagnosis was given. She does have a referral to OB at [facility] for this problem. She denies any new symptoms and also denies any nausea, vomiting, dysuria, fever , chills, leg numbness, weakness or any bowel or bladder incontinence. MD Complaint: Back pain Onset/Timin -: Year(s) Similar Symptoms Previously: Yes Radiation: Abdomen Severity: Moderate Severity scale (1-10): 9 Quality: Burning, Stabbing, Other Consistency: Constant, Getting worse Improves With: Medication, Other Worsens With: Movement, Sitting upright Context: Unknown Associated Symptoms: Denies other symptoms Treatments Prior to Arrival: NSAIDS, Prescription analgesics Treatment Prior to Arrival Comment:: naproxyn and a borrowed [place] - Related Data Previous Rx's Medication Instructions Recorded Cyclobenzaprine HCl [Flexeril] 10 mg PO TID PRN #20 tablet 01/21/17 Allergies Allergy/AdvReac Type Severity Reaction Status Date / Time marijuana Allergy ANAPHYLAXIS Verified 01/21/17 10:47 scallops Allergy HIVES Verified 01/21/17 10:47 Travel Screening - Travel/Exposure Within Last 30 Days Have you traveled within the last 30 days?: Yes Location Detail:: [place] - Travel/Exposure Within Last Year Have you traveled outside the [place] 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) - RESPIRATORY Hx Respiratory Disorders: Yes Hx Bronchitis: Yes (chronic) Hx Pneumonia: Yes (<1yr ago) - CARDIOVASCULAR Hx Cardio Disorders: No - NEURO Hx Neuro Disorders: Yes Hx Headaches: Yes (hx of migraines) - GI Hx GI Disorders: No - Hx Genitourinary Disorders: No - ENDOCRINE Hx Endocrine Disorders: No Hx Diabetes: No Hx Thyroid Disease: No - MUSCULOSKELETAL Hx Musculoskeletal Disorders: No - PSYCH Hx Psych Problems: Yes Comment:: Autism - HEMATOLOGY/ONCOLOGY Hx Hematology/Oncology Disorders: No Family Medical History Any Significant Family History?: Yes Hx Alcohol Use: Father, Brother/Sister Hx Anxiety: Father, Mother, Brother/Sister, Grandparents Hx Depression: Father, Mother, Brother/Sister, Grandparents Hx Diabetes: Mother, Grandparents Hx Heart Disease: Father, Mother, Grandparents Hx HTN: Father, Mother, Grandparents Hx Kidney Disease: Mother Hx Stroke: Mother, Grandparents *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 negative: Tenderness - Respiratory Respiratory exam: Normal lung sounds bilaterally. negative: Respiratory distress - Cardiovascular Cardiovascular Exam: Regular rate, Normal rhythm, Normal heart sounds - GI/Abdominal GI/Abdominal exam: Soft, Normal bowel sounds. negative: Tenderness - Extremities Extremities exam: Normal inspection, Full ROM, Normal capillary refill. negative: Tenderness - Back Back exam: Reports: Paraspinal tenderness, Other (Neg SLR bilaterally.). Denies : Normal inspection, Vertebral tenderness - Neurological Neurological exam: Alert, Normal gait, Oriented X3, Reflexes normal (1+ and equal bilaterally.). negative: Abnormal gait, Altered, Motor sensory deficit Course Vital Signs 01/21/17 10:54 Temperature 97.7 F Pulse Rate 69 Respiratory 18 Rate Blood Pressure 134/86 Pulse Ox 97 - Reevaluation(s) Reevaluation #1: The patient is doing better at this time. She is sleeping on the cart and after waking her up she states she is much better. 01/21/17 13:44 Reevaluation #2: The patient is doing much better now. She denies any AP or any new back pain. She states the back pain is much improved and she is up walking normally. I did explain to her that her workup has been WNL's. She is to see her PCP next week for further eval. 01/21/17 14:12 Medical Decision Making - Data Complexity MDM Data: Labs Ordered and/or Reviewed - Lab Data Result diagrams: 01/21/17 11:55 01/21/17 11:55 Disposition Disposition: Discharge Clinical Impression: Chronic back pain Qualifiers: Back pain location: back pain in unspecified location Back pain laterality: unspecified Qualified Code(s): M54.9 - Dorsalgia, unspecified Disposition: Home, Self-Care Condition: (2) Stable Instructions: Chronic Back Pain (ED) Additional Instructions: Please continue your Naprosyn and add the Flexeril. Please see your PCP for recheck. Return to the ER for any increased pain, fever, vomiting, or any leg numbness, weakness, or any bowel or bladder issues. Prescriptions: Cyclobenzaprine HCl [Flexeril] 10 mg PO TID PRN #20 tablet PRN Reason: Pain Forms: Patient Portal Access Time of Disposition: 14:14 Quality - Quality Measures Quality Measures: N/A - Blood Pressure Screening View Details: Yes Does Patient Have Any of the Following: No Blood Pressure Classification: Pre-Hypertensive BP Reading Systolic Measurement: 132 Diastolic Measurement: 81 Screening for High Blood Pressure: < Pre-Hypertensive BP, F/U Documented > [ [id number]] Pre-Hypertensive Follow-up Interventions: Referral to alternative/primary care provider.
[2017-01-21 11:29] LABS: URINE APPEARANCE CLEAR; URINE BILIRUBIN NEGATIVE (NEGATIVE); URINE BLOOD NEGATIVE (NEGATIVE); URINE COLOR YELLOW; URINE GLUCOSE (UA) NEGATIVE (NEGATIVE); URINE KETONE NEGATIVE (NEGATIVE); URINE LEUKOCYTE ESTERASE NEGATIVE (NEGATIVE); URINE NITRITE NEGATIVE (NEGATIVE); URINE PROTEIN NEGATIVE (NEGATIVE); URINE UROBILINOGEN 0.2 E.U./dL (0.20 - 1.00)
[2017-01-21 11:38] LABS: HCG,QUALITATIVE URINE NEGATIVE (NEGATIVE)
[2017-01-21] MEDS ORDERED: ORPHENADRINE CITRATE 60MG/2ML VIAL IM ONE (11:39)
[2017-01-21] MEDS ORDERED: KETOROLAC 30 MG/ML VIAL IM ONE (11:39)
[2017-01-21 12:30] LABS: BASO % 0.2 % (0-6); EOS % 2.6 % (0-6); GRAN % 61.3 % (47-80); HEMATOCRIT 36.8 % (35.0-47.0); HEMOGLOBIN 12.2 gm/dl (11.6-16.0); LYMPH % 31.1 % (16-45); MEAN CELL VOLUME 80.5 fl (81-97); MEAN CORPUSCULAR HEMOGLOBIN 26.7 pg (27-33); MEAN CORPUSCULAR HGB CONC 33.2 g/dl (32-36); MEAN PLATELET VOLUME 9.8 fl (7.4-10.4); MONO % 4.8 % (0-9); PLATELET COUNT 288 K/uL (130-400); RED BLOOD COUNT 4.57 M/uL (3.80-5.40); RED CELL DISTRIBUTION WIDTH 13.8 % (11.5-14.5); WHITE BLOOD COUNT W/O DIFF 10.2 K/uL (4.2-12.2)
[2017-01-21 13:58] LABS: ALBUMIN 3.5 g/dL (4.0-5.0); ALKALINE PHOSPHATASE 74 U/L (35-104); ALT/SGPT 13 U/L (<33); AST/SGOT 13 U/L (10.0-35.0); BLOOD UREA NITROGEN 13 mg/dL (6-20); CREATININE 0.5 mg/dL (0.5-0.9); EST GLOMERULAR FILTRATION RATE > 60 mL/min; GLUCOSE,RANDOM 124 mg/dL (74-109); LIPASE 54 U/L (13-60); TOTAL PROTEIN 7.3 g/dL (6.6-8.7)
[2017-01-21 14:08] LABS: BILIRUBIN,DIRECT < 0.2 mg/dL (0-0.3)
--- NOTE | 2017-01-23 12:11 | RADIOLOGY REPORT ---
DATE: 01/21/2017 at 1230. EXAM: SIX-VIEW, LUMBAR SPINE. HISTORY: Chronic low back pain with radiation down right leg. COMPARISON: Lumbar spine dated 05/31/2016. TECHNIQUE: Six views of the lumbar spine were obtained. FINDINGS: Transitional segment of the lumbosacral junction. No fracture or subluxation. Disc stature is preserved. IMPRESSION: TRANSITIONAL SEGMENT AT LUMBOSACRAL JUNCTION. NO ACUTE PROCESS OF THE LUMBAR SPINE. JOB NUMBER: [id number] [facility]
== END 2017-01-21 14:30 | disposition home or self-care (01) ==
LOC: ER 10:43
DX: G89.29 Other chronic pain (principal); M54.5 Low back pain; R10.2 Pelvic and perineal pain
CPT/HCPCS: 99283; 96372; 99284; 83690; 85025; 80076; 80048; 81003; 81025; 72110; J1885; J2360

== ENCOUNTER 2017-02-22 10:01 | Emergency (ER) | payer MEDICAID ==
[2017-02-22] MEDS ORDERED: 0.9 % SODIUM CHLORIDE 1,000 ML BAG IV ONE (10:25)
[2017-02-22] MEDS ORDERED: PROMETHAZINE HCL 25 MG in 0.9 % SODIUM CHLORIDE 100ML 100 ML IVPB ONE (10:27)
[2017-02-22] MEDS ORDERED: KETOROLAC 30 MG/ML VIAL IVP ONE (10:27)
[2017-02-22 10:54] LABS: URINE APPEARANCE CLEAR; URINE BILIRUBIN NEGATIVE (NEGATIVE); URINE BLOOD TRACE-I (NEGATIVE); URINE COLOR YELLOW; URINE GLUCOSE (UA) NEGATIVE (NEGATIVE); URINE KETONE NEGATIVE (NEGATIVE); URINE LEUKOCYTE ESTERASE SMALL (NEGATIVE); URINE NITRITE NEGATIVE (NEGATIVE); URINE PROTEIN NEGATIVE (NEGATIVE); URINE UROBILINOGEN 0.2 E.U./dL (0.20 - 1.00)
[2017-02-22 11:03] LABS: URINE EPITHELIAL CELLS 0 - 2 (FEW)
[2017-02-22] MEDS ORDERED: PROMETHAZINE HCL 25 MG/ML VIAL IM ONE (11:53)
[2017-02-22] MEDS ORDERED: KETOROLAC 30 MG/ML VIAL IM ONE (11:53)
[2017-02-22 12:01] LABS: BASO % 0.2 % (0-6); EOS % 1.6 % (0-6); GRAN % 64.5 % (47-80); HEMATOCRIT 40.3 % (35.0-47.0); LYMPH % 27.5 % (16-45); MEAN CELL VOLUME 81.9 fl (81-97); MEAN CORPUSCULAR HEMOGLOBIN 26.4 pg (27-33); MEAN CORPUSCULAR HGB CONC 32.3 g/dl (32-36); MEAN PLATELET VOLUME 9.7 fl (7.4-10.4); MONO % 6.2 % (0-9); PLATELET COUNT 309 K/uL (130-400); RED BLOOD COUNT 4.92 M/uL (3.80-5.40); RED CELL DISTRIBUTION WIDTH 13.9 % (11.5-14.5); WHITE BLOOD COUNT W/O DIFF 11.5 K/uL (4.2-12.2)
[2017-02-22 12:23] LABS: BLOOD UREA NITROGEN 10 mg/dL (6-20); CREATININE 0.6 mg/dL (0.5-0.9); EST GLOMERULAR FILTRATION RATE > 60 mL/min; GLUCOSE,RANDOM 103 mg/dL (74-109)
--- NOTE | 2017-02-22 13:00 | Emergency Department Record ---
History of Present Illness - General Chief Complaint: Headache Migraine Stated Complaint: MIGRAINE HEADACHE Time Seen by Provider: 02/22/17 10:19 Source: Patient Mode of Arrival: Ambulatory Limitations: No limitations - History of Present Illness Initial Comments: pt states she has had earaches for a month and has been through 2 courses of augmentin. she states she still has the earaches and now has developed a headache that wraps around the front of her head MD Complaint: Headache Onset Description: Gradual Location: Frontal, Temporal Severity scale (1-10): 7 Quality: Aching Consistency: Constant Improves With: Nothing Worsens With: None Associated Symptoms: Nausea, Sensitivity to sound Treatments Prior to Arrival: Acetaminophen Treatment Prior to Arrival Comment:: Tylenol at 0700 - Related Data Home Medications Medication Instructions Recorded Confirmed Last Taken Amoxicillin/Potassium Clav 1 tab PO ASDIR 02/22/17 02/22/17 02/21/17 [Augmentin 875Mg/125Mg] Neomycin/Polymyxin B Sulf/Hc 1 drop OT ASDIR 02/22/17 02/22/17 02/21/17 [Ivywirfl-Avjleklsz-Vz Ear Susp] Allergies Allergy/AdvReac Type Severity Reaction Status Date / Time marijuana Allergy ANAPHYLAXIS Verified 02/22/17 10:13 scallops Allergy HIVES Verified 02/22/17 10:13 Travel Screening - Travel/Exposure Within Last 30 Days Have you traveled within the last 30 days?: No Review of Systems Reviewed: No additional complaints except as noted below Constitutional: Reports: As per HPI. Denies: Chills, Fever, Malaise, Night sweats, Weakness, Weight change Eyes: Reports: As per HPI. Denies: Eye discharge, Eye pain, Photophobia, Vision change ENT: Reports: As per HPI. Denies: Congestion, Dental pain, Ear pain, Epistaxis , Hearing loss, Throat pain Respiratory: Reports: As per HPI. Denies: Cough, Dyspnea, Hemoptysis, Stridor, Wheezes Cardiovascular: Reports: As per HPI. Denies: Arrhythmia, Chest pain, Dyspnea on exertion, Edema, Murmurs, Orthopnea, Palpitations, Paroxysmal nocturnal dyspnea, Rheumatic Fever, Syncope Endocrine: Reports: As per HPI. Denies: Fatigue, Heat or cold intolerance, Polydipsia, Polyuria Gastrointestinal: Reports: As per HPI. Denies: Abdominal pain, Constipation, Diarrhea, Hematemesis, Hematochezia, Melena, Nausea, Vomiting Genitourinary: Reports: As per HPI. Denies: Abnormal menses, Discharge, Dyspareunia, Dysuria, Frequency, Hematuria, Incontinence, Retention, Urgency Musculoskeletal: Reports: As per HPI. Denies: Arthralgia, Back pain, Gout, Joint swelling, Myalgia, Neck pain Skin: Reports: As per HPI. Denies: Bruising, Change in color, Change in hair/ nails, Lesions, Pruritus, Rash Neurological: Reports: As per HPI. Denies: Abnormal gait, Confusion, Headache, Numbness, Paresthesias, Seizure, Tingling, Tremors, Vertigo, Weakness Psychiatric: Reports: As per HPI. Denies: Anxiety, Auditory hallucinations, Depression, Homicidal thoughts, Suicidal thoughts, Visual hallucinations Hematological/Lymphatic: Reports: As per HPI. 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) - RESPIRATORY Hx Respiratory Disorders: Yes Hx Bronchitis: Yes (chronic) Hx Pneumonia: Yes (<1yr ago) - CARDIOVASCULAR Hx Cardio Disorders: No - NEURO Hx Neuro Disorders: Yes Hx Headaches: Yes (hx of migraines) - GI Hx GI Disorders: No - Hx Genitourinary Disorders: No - ENDOCRINE Hx Endocrine Disorders: No Hx Diabetes: No Hx Thyroid Disease: No - MUSCULOSKELETAL Hx Musculoskeletal Disorders: No - PSYCH Hx Psych Problems: Yes Comment:: Autism - HEMATOLOGY/ONCOLOGY Hx Hematology/Oncology Disorders: No Family Medical History Any Significant Family History?: Yes Hx Alcohol Use: Father, Brother/Sister Hx Anxiety: Father, Mother, Brother/Sister, Grandparents Hx Depression: Father, Mother, Brother/Sister, Grandparents Hx Diabetes: Mother, Grandparents Hx Heart Disease: Father, Mother, Grandparents Hx HTN: Father, Mother, Grandparents Hx Kidney Disease: Mother Hx Stroke: Mother, Grandparents *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 negative: External canal tenderness Nasal Exam: Normal inspection. negative: Discharge, Sinus tenderness Mouth exam: Normal external inspection, Tongue normal Teeth exam: Normal inspection. negative: Dental caries Throat exam: Normal inspection. negative: Tonsillar erythema, Tonsillar exudate - Neck Neck exam: Normal inspection, Full ROM. negative: Tenderness - Respiratory Respiratory exam: Normal lung sounds bilaterally. negative: Respiratory distress - Cardiovascular Cardiovascular Exam: Regular rate, Normal rhythm, Normal heart sounds - GI/Abdominal GI/Abdominal exam: Soft, Normal bowel sounds. negative: Tenderness - Rectal Rectal exam: Deferred - exam: Deferred - Extremities Extremities exam: Normal inspection, Full ROM, Normal capillary refill. negative: Tenderness - Back Back exam: Reports: Normal inspection, Full ROM. Denies: Muscle spasm, Rash noted, Tenderness - Neurological Neurological exam: Alert, CN II-XII intact, Normal gait, Oriented X3 - Psychiatric Psychiatric exam: Normal affect, Normal mood - Skin Skin exam: Dry, Intact, Normal color, Warm Course Vital Signs 02/22/17 10:08 Temperature 97.9 F Pulse Rate 71 Respiratory 16 Rate Blood Pressure 141/93 Pulse Ox 96 - Reevaluation(s) Reevaluation #1: 02/22/17 13:40 pt feels better Medical Decision Making - Lab Data Result diagrams: 02/22/17 11:58 02/22/17 11:58 Lab Results 02/22/17 02/22/17 02/22/17 Range/Units 10:45 11:48 11:58 WBC 11.5 (4.2-12.2) K/uL RBC 4.92 (3.80-5.40) M/uL Hgb 13.0 (11.6-16.0) gm/dl Hct 40.3 (35.0-47.0) % MCV 81.9 (81-97) fl MCH 26.4 L (27-33) pg MCHC 32.3 (32-36) g/dl RDW 13.9 (11.5-14.5) % Plt Count 309 (130-400) K/uL MPV 9.7 (7.4-10.4) fl Gran % 64.5 (47-80) % Lymphocytes % 27.5 (16-45) % Monocytes % 6.2 (0-9) % Eosinophils % 1.6 (0-6) % Basophils % 0.2 (0-6) % Sodium (136-145) mmol/L Potassium (3.4-4.5) mmol/L Chloride (98-107) mmol/L Carbon Dioxide (22-29) mmol/L Anion Gap (7-16) BUN (6-20) mg/dL Creatinine (0.5-0.9) mg/dL Estimated GFR mL/min Random Glucose (74-109) mg/dL Calcium (8.6-10.0) mg/dL Urine Color Yellow Urine Appearance Clear Urine pH 6.5 (5.0-8.0) Ur Specific [place] 1.020 (1.002-1.030) Urine Protein Negative (NEGATIVE) Urine Glucose (UA) Negative (NEGATIVE) Urine Ketones Negative (NEGATIVE) Urine Blood Trace-i (NEGATIVE) Urine Nitrite Negative (NEGATIVE) Urine Bilirubin Negative (NEGATIVE) Urine Urobilinogen 0.2 (0.20 - 1.00) E.U./dL Ur Leukocyte Esterase Small H (NEGATIVE) Urine RBC 3 - 6 (NONE SEEN) Urine WBC 6 - 10 (0-2/hpf) Ur Epithelial Cells 0 - 2 (FEW) Urine HCG, Qual Negative (NEGATIVE) 02/22/17 Range/Units 11:58 WBC (4.2-12.2) K/uL RBC (3.80-5.40) M/uL Hgb (11.6-16.0) gm/dl Hct (35.0-47.0) % MCV (81-97) fl MCH (27-33) pg MCHC (32-36) g/dl RDW (11.5-14.5) % Plt Count (130-400) K/uL MPV (7.4-10.4) fl Gran % (47-80) % Lymphocytes % (16-45) % Monocytes % (0-9) % Eosinophils % (0-6) % Basophils % (0-6) % Sodium 138 (136-145) mmol/L Potassium 4.2 (3.4-4.5) mmol/L Chloride 102 (98-107) mmol/L Carbon Dioxide 23.0 (22-29) mmol/L Anion Gap 13.0 (7-16) BUN 10 (6-20) mg/dL Creatinine 0.6 (0.5-0.9) mg/dL Estimated GFR > 60 mL/min Random Glucose 103 (74-109) mg/dL Calcium 8.6 (8.6-10.0) mg/dL Urine Color Urine Appearance Urine pH (5.0-8.0) Ur Specific [place] (1.002-1.030) Urine Protein (NEGATIVE) Urine Glucose (UA) (NEGATIVE) Urine Ketones (NEGATIVE) Urine Blood (NEGATIVE) Urine Nitrite (NEGATIVE) Urine Bilirubin (NEGATIVE) Urine Urobilinogen (0.20 - 1.00) E.U./dL Ur Leukocyte Esterase (NEGATIVE) Urine RBC (NONE SEEN) Urine WBC (0-2/hpf) Ur Epithelial Cells (FEW) Urine HCG, Qual (NEGATIVE) Disposition Disposition: Discharge Clinical Impression: Mastoiditis Qualifiers: Laterality: bilateral Qualified Code(s): H70.93 - Unspecified mastoiditis, bilateral Headache Qualifiers: Headache type: unspecified Headache chronicity pattern: acute headache Intractability: not intractable Qualified Code(s): R51 - Headache Disposition: Home, Self-Care Condition: (1) Good Instructions: Acute Headache (ED), Mastoiditis (ED) Additional Instructions: follow up with family doctor. return sooner if worse. continue augmentin Forms: Patient Portal Access Quality - Quality Measures Quality Measures: N/A - Blood Pressure Screening Does Patient Have Any of the Following: No Blood Pressure Classification: Hypertensive Reading Systolic Measurement: 141 Diastolic Measurement: 93 Screening for High Blood Pressure: < First Hypertensive BP, F/U Documented > [ G8950] First Hypertensive Follow-up Interventions: Follow-up with rescreen GT 1 day and LT 4 weeks.
[2017-02-22] MEDS ORDERED: HYDROMORPHONE HCL 1MG/ML **SYRINGE IM ONE (13:26)
[2017-02-22] MEDS ORDERED: ORPHENADRINE CITRATE 60MG/2ML VIAL IM ONE (13:37)
--- NOTE | 2017-02-23 07:04 | CT SCAN REPORT ---
DATE: 02/22/2017 at 12:55 p.m. EXAM: EMERGENCY HEAD CT. HISTORY: Headache, bilateral ear infections for one month. TECHNIQUE: Axial CT scan of the head performed without intravenous contrast. COMPARISON: Head CT dated 10/28/2015. FINDINGS: Ventricular system is somewhat diminutive in size, but this was the case previously and so is presumably normal for the patient. No definite acute intracranial hemorrhage identified. No focal mass effect or midline shift apparent. No definite acute infarct nor intracranial mass lesion seen. Cyst or polyp formation inferiorly in both maxillary antra, left greater than right. Elsewhere the paranasal sinuses appear clear. Spina bifida of C1 incidentally noted posteriorly. Some dental caries are seen, particularly involving multiple maxillary molars, and dental consultation may be useful. If neurologic symptoms persist, follow-up brain MRI may be useful for further evaluation if not contraindicated. IMPRESSION: 1. SOMEWHAT DIMINUTIVE-APPEARING VENTRICLES SIMILAR TO BEFORE, PRESUMABLY NORMAL FOR THE PATIENT. 2. NO ACUTE INTRACRANIAL HEMORRHAGE OR FOCAL MASS EFFECT EVIDENT. 3. CYSTS OR POLYPS IN THE FLOOR OF THE MAXILLARY SINUSES BILATERALLY, LEFT GREATER THAN RIGHT. 4. QUITE PROMINENT DENTAL CARIES, AND DENTAL CONSULTATION MAY BE USEFUL. 5. SPINA BIFIDA OF C1 POSTERIORLY INCIDENTALLY NOTED. JOB NUMBER: [id number] MTDD
--- NOTE | 2017-02-23 07:25 | CT SCAN REPORT ---
DATE: 02/22/2017 at 12:55 p.m. EXAM: CT SCAN OF THE INTERNAL AUDITORY CANALS/MASTOIDS. HISTORY: Bilateral ear infections for one month. Antibiotic without resolution. Headache today. TECHNIQUE: Axial CT scan of the mastoids/internal auditory canals performed without intravenous contrast. COMPARISON: No prior internal auditory canal/mastoid CT with which to compare. FINDINGS: The middle ear cavities appear clear bilaterally. Minor opacification of a few mastoid air cells inferiorly on the right. Mastoids on the left appear clear. Internal auditory canals appear reasonably symmetric and unremarkable without intravenous contrast. MRI is more sensitive for evaluation of the internal auditory canals if there is continued concern for the internal auditory canals themselves. Some cysts or polyp formation partially seen in both maxillary antra, left greater than right. Spina bifida of C1 posteriorly incidentally noted. IMPRESSION: 1. MINOR OPACIFICATION OF A FEW MASTOID AIR CELLS INFERIORLY ON THE RIGHT. ELSEWHERE THE MASTOIDS APPEAR CLEAR BILATERALLY. MIDDLE EAR CAVITIES APPEAR CLEAR. 2. INTERNAL AUDITORY CANALS APPEAR REASONABLY SYMMETRIC AND UNREMARKABLE. 3. CYSTS OR POLYP FORMATION INFERIORLY IN BOTH MAXILLARY ANTRA, LEFT GREATER THAN RIGHT. 4. SPINA BIFIDA OF C1 POSTERIORLY. JOB NUMBER: [id number] MTDD
== END 2017-02-22 14:11 | disposition home or self-care (01) ==
LOC: ER 10:01
DX: R51 Headache (principal); R11.0 Nausea; H70.93 Unspecified mastoiditis, bilateral
CPT/HCPCS: 70450; 70480; 80048; 81001; 81025; 85025; 93005; 93010; 96372; 96374; 99284; J1170; J1885; J2550

== ENCOUNTER 2017-05-06 20:23 | Emergency (ER) | payer MEDICAID ==
[2017-05-06] MEDS ORDERED: METHYLPREDNISOLONE PF 125MG/VIAL IM ONE (21:23)
[2017-05-06] MEDS ORDERED: DIPHENHYDRAMINE HCL IV 50 MG/ML VIAL IM ONE (21:23)
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
== END 2017-05-06 22:20 | disposition home or self-care (01) ==
LOC: ER 20:23
DX: T40.7X5A Adverse effect of cannabis (derivatives), initial encounter (principal); R13.10 Dysphagia, unspecified; R06.02 Shortness of breath; J02.9 Acute pharyngitis, unspecified
CPT/HCPCS: 87880; 96372; 99283; 99284; J1200; J2930

== ENCOUNTER 2017-05-17 09:54 | Emergency (ER) | payer MEDICAID ==
--- NOTE | 2017-05-17 10:29 | Emergency Department Record ---
History of Present Illness - General Chief Complaint: Abdominal Pain Stated Complaint: PELVIC AND HIP PAIN Time Seen by Provider: 05/17/17 10:14 Source: Patient Mode of Arrival: Ambulatory Limitations: No limitations - History of Present Illness Initial Comments: 26 yo female presents with a couple days of initially bilateral hip pain that is now pelvic cramping with thick whitish discharge. No bleeding. She has PCOS and normally has very irregular menstrual cycles. No fever. No significant dysuria. No blood in the discharge or urine. No diarrhea. No cough, cold or flu symptoms. MD Complaint: Abdominal pain Onset/Timin -: Days(s) Location: Suprapubic Radiation: Other Migration to: Other Severity: Severe Quality: Sharp Consistency: Constant Improves With: Nothing Worsens With: Nothing Associated Symptoms: Denies other symptoms - Related Data LMP Date: 05/03/17 Patient : No Previous Rx's Medication Instructions Recorded Metronidazole [Flagyl] 500 mg PO BID #14 tablet 05/17/17 Naproxen [Naprosyn] 500 mg PO Q12HR #20 tablet 05/17/17 Nitrofurantoin Monohyd/M-Cryst 100 mg PO BID #14 capsule 05/17/17 [Macrobid 100 mg Capsule] Allergies Allergy/AdvReac Type Severity Reaction Status Date / Time marijuana Allergy ANAPHYLAXIS Verified 05/17/17 10:14 scallops Allergy HIVES Verified 05/17/17 10:14 Travel Screening - Travel/Exposure Within Last 30 Days Have you traveled within the last 30 days?: Yes Location Detail:: [place] - Travel Symptoms Symptom Screening: None Review of Systems Constitutional: Denies: Chills, Fever, Malaise, Weakness Eyes: Denies: Eye discharge ENT: Denies: Congestion, Epistaxis, Throat pain Respiratory: Denies: Cough, Dyspnea, Hemoptysis, Wheezes Cardiovascular: Denies: Chest pain, Syncope Endocrine: Denies: Fatigue Gastrointestinal: Reports: Abdominal pain. Denies: Diarrhea, Vomiting Genitourinary: Reports: Discharge. Denies: Frequency, Hematuria Musculoskeletal: Reports: Arthralgia, Myalgia. 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) - RESPIRATORY Hx Respiratory Disorders: Yes Hx Bronchitis: Yes (chronic) Hx Pneumonia: Yes - CARDIOVASCULAR Hx Cardio Disorders: No - NEURO Hx Neuro Disorders: Yes Hx Headaches: Yes (hx of migraines) - GI Hx GI Disorders: No - Hx Genitourinary Disorders: No - ENDOCRINE Hx Endocrine Disorders: No - MUSCULOSKELETAL Hx Musculoskeletal Disorders: No - PSYCH Hx Psych Problems: Yes Comment:: Autism - HEMATOLOGY/ONCOLOGY Hx Hematology/Oncology Disorders: No Family Medical History Any Significant Family History?: Yes Hx Alcohol Use: Father, Brother/Sister Hx Anxiety: Father, Mother, Brother/Sister, Grandparents Hx Depression: Father, Mother, Brother/Sister, Grandparents Hx Diabetes: Mother, Grandparents Hx Heart Disease: Father, Mother, Grandparents Hx HTN: Father, Mother, Grandparents Hx Kidney Disease: Mother Hx Stroke: Mother, Grandparents *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 negative: Conjunctival injection, Scleral icterus - ENT ENT exam: Normal exam, Mucous membranes moist Ear exam: Normal external inspection Nasal Exam: Normal inspection Mouth exam: Normal external inspection Throat exam: Normal inspection. negative: Tonsillar erythema, Tonsillomegaly, Tonsillar exudate, R peritonsillar mass, L peritonsillar mass - Neck Neck exam: Normal inspection, Full ROM. negative: Lymphadenopathy, Tenderness - Respiratory Respiratory exam: Normal lung sounds bilaterally. negative: Respiratory distress - Cardiovascular Cardiovascular Exam: Regular rate, Normal rhythm, Normal heart sounds - GI/Abdominal GI/Abdominal exam: Soft - Rectal Rectal exam: Deferred - exam: Normal bimanual exam, Vaginal discharge (thick whitish). negative: Abnormal external exam, Adnexal mass (L), Adnexal mass (R), Adnexal tenderness ( L), Adnexal tenderness (R), Cervical discharge, cervical motion tenderness, Enlarged uterus, Vaginal bleeding, Vaginal erythema - Extremities Extremities exam: Normal inspection - Back Back exam: Reports: Normal inspection, Full ROM. Denies: CVA tenderness (R), CVA tenderness (L), Muscle spasm, Paraspinal tenderness, Rash noted, Tenderness , Vertebral tenderness - Neurological Neurological exam: Alert, Normal gait, Oriented X3 - Psychiatric Psychiatric exam: Normal affect, Normal mood. negative: Agitated, Anxious - Skin Skin exam: Dry, Intact, Normal color, Warm Course Vital Signs 05/17/17 10:11 Temperature 97.8 F Pulse Rate 85 Respiratory 18 Rate Blood Pressure 129/89 Pulse Ox 97 - Reevaluation(s) Reevaluation #1: 05/17/17 11:09 No trichomonas or yeast on the wet prep The UCG is negative 05/17/17 11:11 Given the patient is sexually active with discharge I recommend antibiotics until cultures return 05/17/17 11:22 The UA was reviewed WBC, LE and Bacteria noted Disposition Disposition: Discharge Clinical Impression: Vaginal discharge Urinary tract infection Qualifiers: Urinary tract infection type: site unspecified Hematuria presence: without hematuria Qualified Code(s): N39.0 - Urinary tract infection, site not specified Disposition: Home, Self-Care Condition: (1) Good Instructions: Vaginal Discharge (ED), Urinary Tract Infection in Women (ED) Additional Instructions: Call your doctor to recheck your vaginal discharge this week Return or been seen if you have fever or pain Prescriptions: Naproxen [Naprosyn] 500 mg PO Q12HR #20 tablet Metronidazole [Flagyl] 500 mg PO BID #14 tablet Nitrofurantoin Monohyd/M-Cryst [Macrobid 100 mg Capsule] 100 mg PO BID #14 capsule Forms: Patient Portal Access Time of Disposition: 11:13 Quality - Quality Measures Quality Measures: N/A - Blood Pressure Screening Does Patient Have Any of the Following: No Blood Pressure Classification: Pre-Hypertensive BP Reading Systolic Measurement: 129 Diastolic Measurement: 89 Screening for High Blood Pressure: < Pre-Hypertensive BP, F/U Documented > [ G8950] Pre-Hypertensive Follow-up Interventions: Referral to alternative/primary care provider.
[2017-05-17] MEDS ORDERED: IBUPROFEN 600 MG TABLET PO ONE (10:43)
[2017-05-17 10:56] LABS: URINE APPEARANCE SL CLOUDY; URINE BILIRUBIN NEGATIVE (NEGATIVE); URINE BLOOD NEGATIVE (NEGATIVE); URINE COLOR YELLOW; URINE GLUCOSE (UA) NEGATIVE (NEGATIVE); URINE KETONE NEGATIVE (NEGATIVE); URINE LEUKOCYTE ESTERASE MODERATE (NEGATIVE); URINE NITRITE NEGATIVE (NEGATIVE); URINE PROTEIN TRACE (NEGATIVE); URINE UROBILINOGEN 0.2 E.U./dL (0.20 - 1.00)
[2017-05-17 10:58] LABS: HCG,QUALITATIVE URINE NEGATIVE (NEGATIVE)
[2017-05-17] MEDS ORDERED: CEFTRIAXONE 250 MG VIAL IM ONE (11:11)
[2017-05-17 11:17] LABS: URINE BACTERIA FEW; URINE RBC 0 - 2 (NONE SEEN); URINE WBC 21 - 35 (0-2/hpf)
[2017-05-17] MEDS ORDERED: AZITHROMYCIN 500 MG TABLET PO ONE (11:25)
[2017-05-17 13:37] LABS: URINE MUCUS MODERATE
[2017-05-18 15:53] LABS: GC SPECIMEN TYPE Vaginal
== END 2017-05-17 11:57 | disposition home or self-care (01) ==
LOC: ER 09:54
DX: N39.0 Urinary tract infection, site not specified (principal); N89.8 Other specified noninflammatory disorders of vagina; R10.2 Pelvic and perineal pain; M25.552 Pain in left hip; M25.551 Pain in right hip; E28.2 Polycystic ovarian syndrome
CPT/HCPCS: 99284 ×2; 96372; 81001; 81025; Q0111; J0696; 87210

== ENCOUNTER 2018-09-25 10:15 | Emergency (ER) | payer SELFPAY ==
--- NOTE | 2018-09-25 10:48 | Emergency Department Record ---
History of Present Illness - General Chief complaint: Vaginal bleeding Stated complaint: VAGINAL BLEEDING Time Seen by Provider: 09/25/18 10:35 Source: Patient Mode of Arrival: Ambulatory Limitations: No limitations - History of Present Illness Initial comments: The patient is here due to a 3 day hx of vaginal bleeding. It was very light the first day and then has been progressively worsening. Today the patient states she was passing clots and has gone thru 4 pads so far. She has been having pelvic pain but that is a chronic issue and no different today. The patient has a hx of anemia but denies any weakness, lightheadedness, fevers, nausea or vomi ting. The patient states that last time she had any significant vaginal bleeding was 6 months ago and she is not supposed to be having menstrual periods due to being on hormones and being anemic. She also has a hx of cervical CA and possibly ovarian CA but she still has her ovaries. The patient has a specialist in [place] where she used to live but she just moved back to [place] a week ago. MD Complaint: Vaginal bleeding Onset/Timin -: Days(s) Radiation: LLQ Severity: Moderate Severity scale (1-10): 5 Consistency: Constant Improves with: None Worsens with: None Patient : No Associated Symptoms: Abdominal pain, Hematuria, Nausea/vomiting, Vaginal bleeding - Related Data Sexually active: No : 1 Para: 6 Home Medications Medication Instructions Recorded Confirmed Last Taken Famotidine 40 mg PO BID 09/25/18 09/25/18 1 Day Ago ~09/24/18 Metformin HCl [Metformin HCl ER] 1,000 mg PO BID 09/25/18 09/25/18 09/25/18 Norethindrone [Kirsty] 0.5 mg PO QHS 09/25/18 09/25/18 2 Days Ago ~09/23/18 Omeprazole [Prilosec] 20 mg PO DAILY 09/25/18 09/25/18 1 Day Ago ~09/24/18 Ranitidine HCl [Zantac] 150 mg PO BID 09/25/18 09/25/18 Unknown Allergies Allergy/AdvReac Type Severity Reaction Status Date / Time marijuana Allergy ANAPHYLAXIS Verified 05/17/17 10:14 scallops Allergy HIVES Verified 05/17/17 10:14 Travel Screening - Travel/Exposure Within Last 30 Days Have you traveled within the last 30 days?: No - Travel Symptoms Symptom Screening: Vomiting, Stomach Pain, Bleeding Review of Systems Constitutional: Denies: Chills, Fever Eyes: Denies: Eye discharge ENT: Denies: Congestion Respiratory: Denies: Cough, Dyspnea Past Medical History - SOCIAL HISTORY Smoking Status: Never 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 - ENDOCRINE Hx Endocrine Disorders: Yes Hx Diabetes: Yes Comment:: pre diabetic - MUSCULOSKELETAL Hx Musculoskeletal Disorders: No - PSYCH Hx Psych Problems: Yes Comment:: Autism - HEMATOLOGY/ONCOLOGY Hx Hematology/Oncology Disorders: No Family Medical History Any Significant Family History?: Yes Hx Alcohol Use: Father, Brother/Sister Hx Anxiety: Father, Mother, Brother/Sister, Grandparents Hx Depression: Father, Mother, Brother/Sister, Grandparents Hx Diabetes: Mother, Grandparents Hx Heart Disease: Father, Mother, Grandparents Hx HTN: Father, Mother, Grandparents Hx Kidney Disease: Mother Hx Stroke: Mother, Grandparents *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 negative: Tenderness - Respiratory Respiratory exam: Normal lung sounds bilaterally. negative: Respiratory distress - Cardiovascular Cardiovascular Exam: Regular rate, Normal rhythm, Normal heart sounds - GI/Abdominal GI/Abdominal exam: Soft, Tenderness (There is mild pelvic tenderness but with a soft abdomen.). negative: Guarding, Pulsatile mass, Rebound, Rigid - Extremities Extremities exam: Normal inspection, Full ROM, Normal capillary refill. nega tive: Tenderness - Neurological Neurological exam: Alert. negative: Motor sensory deficit Course Vital Signs 09/25/18 10:17 Temperature 98.4 F Pulse Rate 65 Respiratory 18 Rate Blood Pressure 120/73 Pulse Ox 98 - Reevaluation(s) Reevaluation #1: The patient is doing very well at this time. She is presently laughing and smiling in the room and is walking in the room with no obvious discomfort. I did go in and discuss the blood tests and the fact she is clearly not anemic. I also offered to perform a pelvic exam because if she is having excessive bleeding the safest thing to do is examine the amount of bleeding and possibly offer further testing. The patient is refusing the pelvic. I did explain to her that by NOT doing the pelvic I really cannot give her any opinion regarding the cause of the bleeding. 09/25/18 11:28 Reevaluation #2: The patient is doing well at this time. She is resting comfortably. Her bleeding seems to have slowed down significantly. The patient did have a cath UA done due to the first urine being contaminated and there was no vaginal bleeding at that time. I also again asked the patient to if she would allow be to perform a Pelvic exam and she again declined. She understands the risks of NOT doing the pelvic and the fact I cannot tell her anything about the bleeding or the cervix. I also did discuss the need for an US but the patient is refusing transfer for the test. I explained to her that by NOT doing the US I cannot tell her the condition of her ovaries or of any bleeding in the pelvis. 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 09/25/18 12:29 Medical Decision Making - Lab Data Result diagrams: 09/25/18 10:57 09/25/18 10:57 Disposition Disposition: Discharge Clinical Impression: Menorrhagia Qualifiers: Menorrahagia type: with irregular cycle Qualified Code(s): N92.1 - Excessive and frequent menstruation with irregular cycle Disposition: Home, Self-Care Condition: (2) Stable Instructions: Menstruation (ED) Additional Instructions: Please continue your home pain medicines and please see your family doctor this week for recheck and the pelvic exam and pelvic US. Return to the ER for any worsening bleeding, worsening AP, dizziness, weakness, or fevers. Forms: Patient Portal Access Time of Disposition: 12:35 Quality - Quality Measures Quality Measures: N/A - Blood Pressure Screening View Details: Yes Does Patient Have Any of the Following: No Blood Pressure Classification: Pre-Hypertensive BP Reading Systolic Measurement: 122 Diastolic Measurement: 78 Screening for High Blood Pressure: < Pre-Hypertensive BP, F/U Documented > [G8950] Pre-Hypertensive Follow-up Interventions: Referral to alternative/primary care provider.
[2018-09-25 11:03] LABS: ABSOLUTE NEUTROPHIL COUNT 4.13; BASO % 0.4 % (0-6); EOS % 3.2 % (0-6); GRAN % 49.3 % (47-80); HEMATOCRIT 42.2 % (35.0-47.0); HEMOGLOBIN 13.6 gm/dl (11.6-16.0); LYMPH % 40.1 % (16-45); MEAN CELL VOLUME 82.1 fl (81-97); MEAN CORPUSCULAR HEMOGLOBIN 26.5 pg (27-33); MEAN CORPUSCULAR HGB CONC 32.2 g/dl (32-36); MEAN PLATELET VOLUME 10.1 fl (7.4-10.4); PLATELET COUNT 327 K/uL (130-400); RED BLOOD COUNT 5.14 M/uL (3.80-5.40); RED CELL DISTRIBUTION WIDTH 13.8 % (11.5-14.5); WHITE BLOOD COUNT W/O DIFF 8.4 K/uL (4.2-12.2)
[2018-09-25 11:12] LABS: URINE APPEARANCE CLOUDY; URINE BILIRUBIN SMALL (NEGATIVE); URINE BLOOD LARGE (NEGATIVE); URINE COLOR RED; URINE GLUCOSE (UA) NEGATIVE (NEGATIVE); URINE KETONE NEGATIVE (NEGATIVE); URINE LEUKOCYTE ESTERASE TRACE (NEGATIVE); URINE NITRITE NEGATIVE (NEGATIVE); URINE UROBILINOGEN 0.2 E.U./dL (0.20 - 1.00)
[2018-09-25 11:14] LABS: URINE WBC 0 - 2 (0-2/hpf)
[2018-09-25 11:15] LABS: URINE BACTERIA NONE SEEN
[2018-09-25 11:16] LABS: BLOOD UREA NITROGEN 14 mg/dL (6-20); CREATININE 0.7 mg/dL (0.5-0.9); EST GLOMERULAR FILTRATION RATE > 60 mL/min
[2018-09-25 11:19] LABS: GLUCOSE,RANDOM 92 mg/dL (74-109)
[2018-09-25 12:29] LABS: URINE APPEARANCE CLEAR; URINE BILIRUBIN NEGATIVE (NEGATIVE); URINE BLOOD MODERATE (NEGATIVE); URINE COLOR YELLOW; URINE GLUCOSE (UA) NEGATIVE (NEGATIVE); URINE KETONE NEGATIVE (NEGATIVE); URINE LEUKOCYTE ESTERASE NEGATIVE (NEGATIVE); URINE NITRITE NEGATIVE (NEGATIVE); URINE PROTEIN TRACE (NEGATIVE); URINE UROBILINOGEN 0.2 E.U./dL (0.20 - 1.00)
[2018-09-25 12:33] LABS: URINE BACTERIA NONE SEEN; URINE EPITHELIAL CELLS 0 - 2 (FEW); URINE WBC NONE SEEN (0-2/hpf)
== END 2018-09-25 12:40 | disposition home or self-care (01) ==
LOC: ER 10:15
DX: N92.1 Excessive and frequent menstruation with irregular cycle (principal); R10.32 Left lower quadrant pain; R11.2 Nausea with vomiting, unspecified
CPT/HCPCS: 80048; 81001; 84703; 85025; 99283

== ENCOUNTER 2018-12-05 01:17 | Emergency (ER) | payer MEDICAID ==
--- NOTE | 2018-12-05 02:01 | Emergency Department Record ---
History of Present Illness - General Chief Complaint: Back Pain/Injury Stated Complaint: BACK PAIN OVER HIP Time Seen by Provider: 12/05/18 01:41 Source: Patient Mode of Arrival: Ambulatory Limitations: No limitations - History of Present Illness Initial Comments: 28 yo female presents to ED for evaluation of severe, RLQ and back pain symptoms that she awoke with 1 hour ago. Patient reports a history of PCOS, reports similar pain symptoms related to ovarian torsion. Patient denies nausea, vomiting, dysuria, or hematuria symptoms. Patient denies previous history of kidney stones, denies health problems other than PCOS. MD Complaint: Other Onset/Timin -: Hour(s) Similar Symptoms Previously: Yes Place: Home Severity: Severe Quality: Aching Consistency: Constant Improves With: None Worsens With: Movement, Other (Palpation) Associated Symptoms: Denies other symptoms Treatments Prior to Arrival: Acetaminophen - Related Data Allergies Allergy/AdvReac Type Severity Reaction Status Date / Time marijuana Allergy ANAPHYLAXIS Unverified 10/27/18 09:30 scallops Allergy HIVES Unverified 10/27/18 09:30 Review of Systems Constitutional: Denies: Chills, Fever, Malaise, Night sweats Eyes: Denies: Eye discharge, Eye pain ENT: Denies: Congestion, Ear pain, Epistaxis Respiratory: Denies: Cough, Dyspnea Cardiovascular: Denies: Chest pain, Dyspnea on exertion Endocrine: Denies: Fatigue, Heat or cold intolerance Gastrointestinal: Reports: Abdominal pain. 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 - ENDOCRINE Hx Endocrine Disorders: Yes Hx Diabetes: Yes Comment:: pre diabetic - MUSCULOSKELETAL Hx Musculoskeletal Disorders: No - PSYCH Hx Psych Problems: Yes Comment:: Autism - HEMATOLOGY/ONCOLOGY Hx Hematology/Oncology Disorders: No Hx Cancer: Yes Hx Chemotherapy: No Hx Radiation Therapy: No Comment:: uterine and cervical Family Medical History Any Significant Family History?: Yes Hx Alcohol Use: Father, Brother/Sister Hx Anxiety: Father, Mother, Brother/Sister, Grandparents Hx Depression: Father, Mother, Brother/Sister, Grandparents Hx Diabetes: Mother, Grandparents Hx Heart Disease: Father, Mother, Grandparents Hx HTN: Father, Mother, Grandparents Hx Kidney Disease: Mother Hx Stroke: Mother, Grandparents *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 negative: Conjunctival injection, Periorbital swelling, Periorbital tenderness, Scleral icterus - ENT Ear exam: negative: Auricular hematoma, Auricular trauma Nasal Exam: negative: Active bleeding, Discharge, Dried blood, Foreign body Mouth exam: negative: Drooling, Laceration, Muffled voice, Tongue elevation - Neck Neck exam: Normal inspection. negative: Meningismus, Tenderness - Respiratory Respiratory exam: Normal lung sounds bilaterally. negative: Rales, Respiratory distress, Rhonchi, Stridor - Cardiovascular Cardiovascular Exam: Regular rate, Normal rhythm, Normal heart sounds - GI/Abdominal GI/Abdominal exam: Soft, Tenderness (TTP RLQ on examination, no rebo und/guarding). negative: Rebound, Rigid - Rectal Rectal exam: Deferred - exam: Deferred - Extremities Extremities exam: Normal inspection. negative: Pedal edema, Tenderness - Back Back exam: Denies: CVA tenderness (R), CVA tenderness (L) - Neurological Neurological exam: Alert, Normal gait, Oriented X3 - Psychiatric Psychiatric exam: Normal affect, Normal mood - Skin Skin exam: Normal color. negative: Abrasion Type of lesion: negative: abrasion Course Vital Signs 08/26/19 01:49 Temperature 98.1 F Pulse Rate [ 89 Left] Respiratory 20 Rate Blood Pressure 116/84 [Left Arm] Pulse Ox 99 - Reevaluation(s) Reevaluation #1: 12/05/18 01:59 Patient was seen and examined, significant clinical concern for possible ovarian torsion. As US is unavailable, will initiate transfer to [facility] access hospital for US evaluation. Patient is requesting to be transferred by private car as well. 12/05/18 02:01 Reevaluation #2: 12/05/18 02:07 Case was discussed with Dr. Meza, will accept patient for transfer. Disposition Disposition: Transfer Clinical Impression: RLQ abdominal pain Disposition: Acute Care Hospital Transfer Transfer To: Critical access hospital Reason For Transfer: US evaluation RLQ Accepting Physician: Derrick Time Discussed w/Accepting Physician: 02:01 Condition: (2) Stable Forms: Patient Portal Access Time of Disposition: 02:01 Quality - Quality Measures Quality Measures: N/A - Blood Pressure Screening Does Patient Have Any of the Following: No Blood Pressure Classification: Pre-Hypertensive BP Reading Systolic Measurement: 116 Diastolic Measurement: 84 Screening for High Blood Pressure: < Pre-Hypertensive BP, F/U Documented > [G8950] Pre-Hypertensive Follow-up Interventions: Referral to alternative/primary care provider.
== END 2018-12-05 02:20 | disposition short-term general hospital (02) ==
LOC: ER 01:17
DX: R10.31 Right lower quadrant pain (principal)
CPT/HCPCS: 99285

== ENCOUNTER 2018-12-22 17:01 | Emergency (ER) | payer MEDICAID ==
--- NOTE | 2018-12-22 17:29 | Emergency Department Record ---
History of Present Illness - General Chief Complaint: Abdominal Pain Stated Complaint: KIDNEY PAIN,VOMITING Time Seen by Provider: 12/22/18 17:05 Source: Patient Mode of Arrival: Ambulatory Limitations: No limitations - History of Present Illness Initial Comments: The patient is here due to abdominal pain for 2 weeks off and on but which got worse today. She has had dysuria for 4 days and then today the lower abdominal pain worsened along with flank pain. She has had multiple episodes of vomiting also. The patient was seen in [place] just over 2 weeks ago for similar issues and had a pelvic US and abdominal CT that did not demonstrate any acute abn ormalities. There has been no fever, chills, or diarrhea with the pain. The patient is doing better but she still does have pain. The patient does have a hx of chronic abdominal pain but this is slightly different. She denies any vaginal issues, discharge or bleeding. MD Complaint: Abdominal pain Onset/Timin -: Days(s) Location: Suprapubic Radiation: LLQ, RLQ Severity scale (1-10): 8 Quality: Burning, Stabbing Improves With: Nothing Worsens With: Nothing - Related Data Allergies Allergy/AdvReac Type Severity Reaction Status Date / Time marijuana Allergy ANAPHYLAXIS Unverified 10/27/18 09:30 scallops Allergy HIVES Unverified 10/27/18 09:30 Travel Screening - Travel/Exposure Within Last 30 Days Have you traveled within the last 30 days?: Yes Location Detail:: [place] - Travel/Exposure Within Last Year Have you traveled outside the [place] in the last year?: Yes Location Detail:: [place] - Additonal Travel Details Have you been exposed to anyone with a communicable illness?: No - Travel Symptoms Symptom Screening: Vomiting Review of Systems Constitutional: Reports: Malaise. Denies: Chills, Fever Eyes: Denies: Eye discharge ENT: Denies: Congestion Respiratory: Denies: Cough Cardiovascular: Denies: Orthopnea Endocrine: Reports: Fatigue Gastrointestinal: Reports: Abdominal pain, Nausea, Vomiting. Denies: Diarrhea Genitourinary: Reports: Dysuria Musculoskeletal: Reports: Back pain (Chronic.). 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 - ENDOCRINE Hx Endocrine Disorders: Yes Hx Diabetes: Yes Comment:: pre diabetic - MUSCULOSKELETAL Hx Musculoskeletal Disorders: No - PSYCH Hx Psych Problems: Yes Comment:: Autism - HEMATOLOGY/ONCOLOGY Hx Hematology/Oncology Disorders: No Hx Cancer: Yes Hx Chemotherapy: No Hx Radiation Therapy: No Comment:: uterine and cervical Family Medical History Any Significant Family History?: No Hx Alcohol Use: Father, Brother/Sister Hx Anxiety: Father, Mother, Brother/Sister, Grandparents Hx Depression: Father, Mother, Brother/Sister, Grandparents Hx Diabetes: Mother, Grandparents Hx Heart Disease: Father, Mother, Grandparents Hx HTN: Father, Mother, Grandparents Hx Kidney Disease: Mother Hx Stroke: Mother, Grandparents *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 negative: Tonsillar erythema, Tonsillar exudate - Neck Neck exam: Normal inspection, Full ROM. negative: Tenderness - Respiratory Respiratory exam: Normal lung sounds bilaterally. negative: Respiratory distress - Cardiovascular Cardiovascular Exam: Regular rate, Normal rhythm, Normal heart sounds - GI/Abdominal GI/Abdominal exam: Soft, Normal bowel sounds, Tenderness (There is diffuse abdominal tenderness to palpation in all 4 quads but with no guarding or rebound.). negative: Guarding, Rebound, Rigid - exam: Deferred - Extremities Extremities exam: Normal inspection, Full ROM, Normal capillary refill. negative: Tenderness - Neurological Neurological exam: Alert. negative: Motor sensory deficit Course Vital Signs 12/22/18 17:09 Temperature 97.5 F L Pulse Rate 78 Respiratory 16 Rate Blood Pressure 123/83 Pulse Ox 97 - Reevaluation(s) Reevaluation #1: The patient is doing slightly better at this time after the [employer]. She is still having pain and due to the blood in the urine we will order an abdominal CT on her. The patient agrees with the plan. I did discuss the case with Dr. Bloom and she will assume the patient's care due to shift change. 12/22/18 19:24 Reevaluation #2: I did review the patient's records from [facility] from 12/05 and she did have a neg pelvic US for torsion and had no acute abnormalities. 12/22/18 19:26 Medical Decision Making - Data Complexity MDM Data: Labs Ordered and/or Reviewed - Lab Data Result diagrams: 12/22/18 17:45 12/22/18 17:45 Disposition Forms: Patient Portal Access Quality - Quality Measures Quality Measures: N/A - Blood Pressure Screening View Details: Yes Does Patient Have Any of the Following: No Blood Pressure Classification: Pre-Hypertensive BP Reading Systolic Measurement: 123 Diastolic Measurement: 83 Screening for High Blood Pressure: < Pre-Hypertensive BP, F/U Documented > [G8950] Pre-Hypertensive Follow-up Interventions: Referral to alternative/primary care provider.
[2018-12-22] MEDS: ACETAMINOPHEN 1,000 MG/100 ML BTL IVPB ONE (17:50)
[2018-12-22] MEDS: ONDANSETRON HCL IV 4 MG/2 ML VIAL IV ONE (17:50)
[2018-12-22] MEDS: 0.9 % SODIUM CHLORIDE 1,000 ML BAG IV ONE (17:50)
[2018-12-22 17:52] LABS: ABSOLUTE NEUTROPHIL COUNT 7.32; BASO % 0.1 % (0-6); EOS % 1.6 % (0-6); GRAN % 71.2 % (47-80); HEMATOCRIT 37.2 % (35.0-47.0); HEMOGLOBIN 11.9 gm/dl (11.6-16.0); LYMPH % 21.1 % (16-45); MEAN CORPUSCULAR HEMOGLOBIN 26.6 pg (27-33); MEAN PLATELET VOLUME 9.3 fl (7.4-10.4); PLATELET COUNT 289 K/uL (130-400); RED BLOOD COUNT 4.48 M/uL (3.80-5.40); RED CELL DISTRIBUTION WIDTH 13.4 % (11.5-14.5); WHITE BLOOD COUNT W/O DIFF 10.3 K/uL (4.2-12.2)
[2018-12-22 18:00] LABS: URINE APPEARANCE CLEAR; URINE BILIRUBIN NEGATIVE (NEGATIVE); URINE BLOOD LARGE (NEGATIVE); URINE COLOR YELLOW; URINE GLUCOSE (UA) NEGATIVE (NEGATIVE); URINE KETONE NEGATIVE (NEGATIVE); URINE LEUKOCYTE ESTERASE NEGATIVE (NEGATIVE); URINE NITRITE NEGATIVE (NEGATIVE); URINE PROTEIN TRACE (NEGATIVE); URINE UROBILINOGEN 0.2 E.U./dL (0.20 - 1.00)
[2018-12-22 18:01] LABS: BLOOD UREA NITROGEN 13 mg/dL (6-20); CREATININE 0.6 mg/dL (0.5-0.9); EST GLOMERULAR FILTRATION RATE > 60 mL/min
[2018-12-22 18:02] LABS: LIPASE 14 U/L (13-60); TOTAL PROTEIN 7.5 g/dL (6.6-8.7)
[2018-12-22 18:04] LABS: GLUCOSE,RANDOM 95 mg/dL (74-109)
[2018-12-22 18:06] LABS: ALT/SGPT 16 U/L (<33)
[2018-12-22 18:07] LABS: ALBUMIN 3.9 g/dL (4.0-5.0); ALKALINE PHOSPHATASE 71 U/L (35-104); AST/SGOT 14 U/L (10.0-35.0)
[2018-12-22 18:09] LABS: BILIRUBIN,DIRECT < 0.2 mg/dL (0-0.3)
[2018-12-22 18:13] LABS: HCG,QUALITATIVE URINE NEGATIVE (NEGATIVE); URINE RBC 16 - 25 (NONE SEEN); URINE WBC NONE SEEN (0-2/hpf)
[2018-12-22] MEDS: KETOROLAC 30 MG/ML VIAL IVP ONE (19:05)
--- NOTE | 2018-12-22 21:15 | Emergency Department Record ---
History of Present Illness - General Chief Complaint: Abdominal Pain Stated Complaint: KIDNEY PAIN,VOMITING Time Seen by Provider: 12/22/18 17:05 Source: Patient Mode of Arrival: Ambulatory Limitations: No limitations - History of Present Illness MD Complaint: Abdominal pain Onset/Timin -: Days(s) Location: Suprapubic Radiation: LLQ, RLQ Severity scale (1-10): 8 Quality: Burning, Stabbing Improves With: Nothing Worsens With: Nothing - Related Data Patient : No Allergies Allergy/AdvReac Type Severity Reaction Status Date / Time marijuana Allergy ANAPHYLAXIS Verified 12/22/18 19:28 scallops Allergy HIVES Verified 12/22/18 19:28 Travel Screening - Travel/Exposure Within Last 30 Days Have you traveled within the last 30 days?: Yes Location Detail:: [place] - Travel/Exposure Within Last Year Have you traveled outside the [place] in the last year?: Yes Location Detail:: [place] - Additonal Travel Details Have you been exposed to anyone with a communicable illness?: No - Travel Symptoms Symptom Screening: Vomiting Review of Systems Constitutional: Reports: Malaise. Denies: Chills, Fever Eyes: Denies: Eye discharge ENT: Denies: Congestion Respiratory: Denies: Cough Cardiovascular: Denies: Orthopnea Endocrine: Reports: Fatigue Gastrointestinal: Reports: Abdominal pain, Nausea, Vomiting. Denies: Diarrhea Genitourinary: Reports: Dysuria Musculoskeletal: Reports: Back pain (Chronic.). 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 - ENDOCRINE Hx Endocrine Disorders: Yes Hx Diabetes: Yes Comment:: pre diabetic - MUSCULOSKELETAL Hx Musculoskeletal Disorders: No - PSYCH Hx Psych Problems: Yes Comment:: Autism - HEMATOLOGY/ONCOLOGY Hx Hematology/Oncology Disorders: No Hx Cancer: Yes Hx Chemotherapy: No Hx Radiation Therapy: No Comment:: uterine and cervical Family Medical History Any Significant Family History?: No Hx Alcohol Use: Father, Brother/Sister Hx Anxiety: Father, Mother, Brother/Sister, Grandparents Hx Depression: Father, Mother, Brother/Sister, Grandparents Hx Diabetes: Mother, Grandparents Hx Heart Disease: Father, Mother, Grandparents Hx HTN: Father, Mother, Grandparents Hx Kidney Disease: Mother Hx Stroke: Mother, Grandparents *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 rad is recommending us if further concern. pt told to return tomorrow if still having pain for reval and possible us Medical Decision Making - Lab Data Result diagrams: 12/22/18 17:45 12/22/18 17:45 Lab Results 12/22/18 12/22/18 12/22/18 Range/Units 17:45 17:45 17:45 WBC 10.3 (4.2-12.2) K/uL RBC 4.48 (3.80-5.40) M/uL Hgb 11.9 (11.6-16.0) gm/dl Hct 37.2 (35.0-47.0) % MCV 83.0 (81-97) fl MCH 26.6 L (27-33) pg MCHC 32.0 (32-36) g/dl RDW 13.4 (11.5-14.5) % Plt Count 289 (130-400) K/uL MPV 9.3 (7.4-10.4) fl Gran % 71.2 (47-80) % Lymphocytes % 21.1 (16-45) % Monocytes % 6.0 (0-9) % Eosinophils % 1.6 (0-6) % Basophils % 0.1 (0-6) % Absolute Neutrophils 7.32 Sodium 142 (136-145) mmol/L Potassium 3.9 (3.4-4.5) mmol/L Chloride 104 (98-107) mmol/L Carbon Dioxide 25.0 (22-29) mmol/L Anion Gap 13.0 (7-16) BUN 13 (6-20) mg/dL Creatinine 0.6 (0.5-0.9) mg/dL Estimated GFR > 60 mL/min Random Glucose 95 (74-109) mg/dL Calcium 8.8 (8.6-10.0) mg/dL Total Bilirubin 0.20 (0.2-1.0) mg/dL Direct Bilirubin < 0.2 (0-0.3) mg/dL AST 14 (10.0-35.0) U/L ALT 16 (<33) U/L Alkaline Phosphatase 71 (35-104) U/L Total Protein 7.5 (6.6-8.7) g/dL Albumin 3.9 L (4.0-5.0) g/dL Lipase 14 (13-60) U/L Urine Color Yellow Urine Appearance Clear Urine pH 5.0 (5.0-8.0) Ur Specific [place] >= 1.030 (1.002-1.030) Urine Protein Trace H (NEGATIVE) Urine Glucose (UA) Negative (NEGATIVE) Urine Ketones Negative (NEGATIVE) Urine Blood Large H (NEGATIVE) Urine Nitrite Negative (NEGATIVE) Urine Bilirubin Negative (NEGATIVE) Urine Urobilinogen 0.2 (0.20 - 1.00) E.U./dL Ur Leukocyte Esterase Negative (NEGATIVE) Urine RBC 16 - 25 (NONE SEEN) Urine WBC None seen (0-2/hpf) Ur Epithelial Cells 3 - 6 (FEW) Urine HCG, Qual Negative (NEGATIVE) Disposition Disposition: Discharge Clinical Impression: Hemorrhagic cyst of right ovary Disposition: Home, Self-Care Condition: (1) Good Instructions: Ovarian Cyst (ED) Additional Instructions: return tomorrow for reevaluation if still having pain. return sooner if worse Forms: Patient Portal Access Quality - Quality Measures Quality Measures: N/A - Blood Pressure Screening Does Patient Have Any of the Following: No Blood Pressure Classification: Pre-Hypertensive BP Reading Systolic Measurement: 123 Diastolic Measurement: 83 Screening for High Blood Pressure: < Pre-Hypertensive BP, F/U Documented > [G8950] Pre-Hypertensive Follow-up Interventions: Follow-up with rescreen every year.
--- NOTE | 2018-12-23 14:49 | CT SCAN REPORT ---
EXAM: CT SCAN OF THE ABDOMEN AND PELVIS HISTORY: PATIENT HAS PAIN FROM KIDNEY STONES. TECHNIQUE: Serial axial CT scan of the abdomen and pelvis was performed at 2.5 mm intervals from the dome of the diaphragm down to the pubic symphysis without the use of intravenous or oral contrast. Comparison: CT scan of the abdomen and pelvis dated 08/20/15 is provided. FINDINGS: The lung windows of the lung bases demonstrate no CT evidence of focal infiltrate or pleural effusion. The visualized heart size and contour is within normal limits. Mild diffuse fatty infiltration of the liver is noted. The size and contour of the liver is within normal limits. No suspicious hepatic lesions are identified. The spleen, pancreas, and adrenal glands are unremarkable. The gallbladder is not visualized. There is no CT evidence of hydronephrosis or hydroureter. No renal or ureteral calculi are noted. The contour and caliber of the noncontrast abdominal aorta is within normal limits. There is no CT evidence of retroperitoneal, pelvic, or inguinal lymphadenopathy. The bowel gas pattern is nonspecific and nonobstructive. There is no CT evidence of free intraperitoneal fluid or free intraperitoneal air. The appendix is visualized and there is no CT evidence of appendicitis. The urinary bladder is unremarkable. The uterus is unremarkable. Within the right adnexal region, there is a 4.7 cm x 3.6 cm cystic structure. I suspect this finding likely represents a hemorrhagic ovarian cyst. If there is further clinical concern then ultrasound examination of the pelvis can be obtained for further evaluation. Bone windows demonstrate no CT evidence of a fracture or dislocation of the visualized osseous structures. IMPRESSION: 1. NO CT EVIDENCE OF RENAL CALCULI OR OBSTRUCTIVE UROPATHY. 2. DIFFUSE HEPATIC STEATOSIS. 3. RIGHT ADNEXAL CYSTIC STRUCTURES NOTED DISCUSSED ABOVE. THIS FINDING MAY REPRESENT A HEMORRHAGIC OVARIAN CYST. IF THERE IS FURTHER CLINICAL CONCERN THEN AN ULTRASOUND EXAMINATION OF THE PELVIS CAN BE OBTAINED FOR FURTHER EVALUATION. JOB NUMBER: [id number] [facility]
== END 2018-12-22 21:20 | disposition home or self-care (01) ==
LOC: ER 17:01
DX: N83.201 Unspecified ovarian cyst, right side (principal); R11.2 Nausea with vomiting, unspecified; R30.0 Dysuria; R19.7 Diarrhea, unspecified; R10.84 Generalized abdominal pain
CPT/HCPCS: 74176; 80048; 80076; 81001; 81025; 83690; 85025; 96365; 96375; 99284; J1885; J2405; J7030

== ENCOUNTER 2018-12-27 16:18 | Emergency (ER) | payer MEDICAID ==
--- NOTE | 2018-12-27 16:48 | Emergency Department Record ---
History of Present Illness - General Chief Complaint: Chest Pain Stated Complaint: ELEVATED HEART/PAIN Time Seen by Provider: 12/27/18 16:43 Source: Patient Mode of Arrival: Ambulatory Limitations: No limitations - History of Present Illness Initial Comments: Pt to ED from home with sensation of ehr heart racing last night. Pt states she was at rest in bed and felt her heart racing and a pressure in her chest. Pt states she has had similar in past with anxiety but she did not feel anxious at the time. Now feels "normal". Also notes "burning" with urination. Concern for UTI. No change in Vag discharge. No sexually active. No concern for STD. Pt with dx PCO and does not have periods. No fever, cough, n/v/d/AP. Onset/Timin -: Days(s) Pain Location: Substernal Pain Radiation: None Severity: Moderate Severity scale (1-10): 7 Quality: Tightness Consistency: Constant Improves With: Nothing Worsens With: Nothing Treatments Prior to Arrival: None - Related Data Home Medications Medication Instructions Recorded Confirmed Last Taken Hydrocodone/Acetaminophen [[place] 1 each PO ASDIR 12/27/18 12/27/18 Unknown 5-325 Tablet] Allergies Allergy/AdvReac Type Severity Reaction Status Date / Time marijuana Allergy ANAPHYLAXIS Verified 12/27/18 16:28 scallops Allergy HIVES Verified 12/27/18 16:28 Travel Screening - Travel/Exposure Within Last 30 Days Have you traveled within the last 30 days?: No Review of Systems Constitutional: Denies: Chills, Fever, Night sweats Eyes: Denies: Eye discharge, Photophobia ENT: Denies: Congestion, Throat pain Respiratory: Denies: Cough, Dyspnea Cardiovascular: Reports: As per HPI, Arrhythmia, Palpitations. 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 - ENDOCRINE Hx Endocrine Disorders: Yes Hx Diabetes: Yes Comment:: pre diabetic - MUSCULOSKELETAL Hx Musculoskeletal Disorders: No - PSYCH Hx Psych Problems: Yes Comment:: Autism - HEMATOLOGY/ONCOLOGY Hx Hematology/Oncology Disorders: Yes Hx Chemotherapy: No Hx Radiation Therapy: No Comment:: uterine and cervical Family Medical History Any Significant Family History?: Yes Hx Alcohol Use: Father, Brother/Sister Hx Anxiety: Father, Mother, Brother/Sister, Grandparents Hx Depression: Father, Mother, Brother/Sister, Grandparents Hx Diabetes: Mother, Grandparents Hx Heart Disease: Father, Mother, Grandparents Hx HTN: Father, Mother, Grandparents Hx Kidney Disease: Mother Hx Stroke: Mother, Grandparents *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 negative: Tenderness - Respiratory Respiratory exam: Normal lung sounds bilaterally. negative: Respiratory distress, Rhonchi, Wheezes - Cardiovascular Cardiovascular Exam: Regular rate, Normal rhythm. negative: Tachycardia - GI/Abdominal GI/Abdominal exam: Soft. negative: Tenderness - Extremities Extremities exam: Normal inspection. negative: Tenderness - Back Back exam: Reports: Normal inspection - Neurological Neurological exam: Alert, Normal gait, Oriented X3 - Psychiatric Psychiatric exam: Normal affect, Normal mood - Skin Skin exam: Normal color. negative: Rash Course Vital Signs 12/27/18 16:23 Temperature 97.8 F Pulse Rate 98 H Respiratory 16 Rate Blood Pressure 140/79 Pulse Ox 98 - Reevaluation(s) Reevaluation #1: 12/27/18 17:24 Pt with normal CXR and neg UA for infection. Long talk and pt comfortable with plan for home. Procedures - EKG Initial Date: 12/27/18 Time: 16:20 EKG: No Acute Changes (NSR 77 ) Disposition Disposition: Discharge Clinical Impression: Heart palpitations, Dysuria Disposition: Home, Self-Care Condition: (1) Good Instructions: Heart Palpitations (ED) Additional Instructions: See your family doctor as needed. Return to the ED as needed. Forms: Patient Portal Access Time of Disposition: 17:27 Quality - Quality Measures Quality Measures: N/A - Blood Pressure Screening Does Patient Have Any of the Following: No Blood Pressure Classification: Hypertensive Reading Systolic Measurement: 140 Diastolic Measurement: 79 Screening for High Blood Pressure: < Pre-Hypertensive BP, F/U Documented > [G8950] Pre-Hypertensive Follow-up Interventions: Follow-up with rescreen every year.
[2018-12-27 16:54] LABS: URINE APPEARANCE CLEAR; URINE BILIRUBIN SMALL (NEGATIVE); URINE BLOOD MODERATE (NEGATIVE); URINE COLOR YELLOW; URINE GLUCOSE (UA) NEGATIVE (NEGATIVE); URINE KETONE NEGATIVE (NEGATIVE); URINE LEUKOCYTE ESTERASE TRACE (NEGATIVE); URINE NITRITE NEGATIVE (NEGATIVE); URINE PROTEIN TRACE (NEGATIVE); URINE UROBILINOGEN 0.2 E.U./dL (0.20 - 1.00)
[2018-12-27 17:10] LABS: URINE EPITHELIAL CELLS >50 (FEW); URINE MUCUS HEAVY
--- NOTE | 2018-12-28 20:54 | RADIOLOGY REPORT ---
EXAM: CHEST 2 VIEWS HISTORY: CHEST TIGHTNESS. TECHNIQUE: Upright PA and lateral views of the chest. COMPARISON: Two-view chest radiographic examination dated 10/09/2016. FINDINGS: The cardiomediastinal silhouette remains normal in size and configuration. The pulmonary vasculature is nondilated. The lungs and pleural spaces are clear. No acute osseous abnormality. Minimal levocurvature of the upper thoracic spine redemonstrated. IMPRESSION: NO RADIOGRAPHIC EVIDENCE OF ACUTE CARDIOPULMONARY DISEASE. [facility]BER: [id number] [facility]
== END 2018-12-27 17:40 | disposition home or self-care (01) ==
LOC: ER 16:18
DX: R00.2 Palpitations (principal); R30.0 Dysuria
CPT/HCPCS: 71046; 81001; 93005; 93010; 99284

== ENCOUNTER 2019-04-03 10:38 | Emergency (ER) | payer MEDICAID ==
--- NOTE | 2019-04-03 11:51 | Emergency Department Record ---
History of Present Illness - General Chief Complaint: Abdominal Pain Stated Complaint: ABD PAIN Time Seen by Provider: 04/03/19 11:24 Source: Patient Mode of Arrival: Ambulatory Limitations: No limitations - History of Present Illness Initial Comments: The patient is here due to worsening of her chronic AP. The pain began to worsen at 4 am today and then later her son gently pushed on her abdomen and the pain became much worse. At times the pain does travel to her L shoulder. She has had nausea but no vomiting. There has been no recent fever, chills, dysuria, back pain or any trouble breathing. The patient has a LONG hx of chronic abdominal pain and has had her gallbladder removed in the past. MD Complaint: Abdominal pain Onset/Timin -: Hour(s) Location: RLQ Radiation: Other Migration to: Other Severity scale (1-10): 9 Quality: Sharp Consistency: Constant Improves With: Nothing Worsens With: Nothing Associated Symptoms: Denies other symptoms - Related Data LMP (females 10-50): other Previous Rx's Medication Instructions Recorded Nitrofurantoin [place] [Macrobid] 100 mg PO BID #10 capsule 04/03/19 Allergies Allergy/AdvReac Type Severity Reaction Status Date / Time marijuana Allergy ANAPHYLAXIS Unverified 02/08/19 14:18 scallops Allergy HIVES Unverified 02/08/19 14:18 Travel Screening - Travel/Exposure Within Last 30 Days Have you traveled within the last 30 days?: No Review of Systems Constitutional: Denies: Chills, Fever Eyes: Denies: Eye discharge ENT: Denies: Congestion Respiratory: Denies: Cough, Dyspnea Past Medical History - SOCIAL HISTORY 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 - ENDOCRINE Hx Endocrine Disorders: Yes Hx Diabetes: Yes Comment:: pre diabetic - MUSCULOSKELETAL Hx Musculoskeletal Disorders: No - PSYCH Hx Psych Problems: Yes Comment:: Autism - HEMATOLOGY/ONCOLOGY Hx Hematology/Oncology Disorders: Yes Hx Chemotherapy: No Hx Radiation Therapy: No Comment:: uterine and cervical Family Medical History Any Significant Family History?: Yes Hx Alcohol Use: Father, Brother/Sister Hx Anxiety: Father, Mother, Brother/Sister, Grandparents Hx Depression: Father, Mother, Brother/Sister, Grandparents Hx Diabetes: Mother, Grandparents Hx Heart Disease: Father, Mother, Grandparents Hx HTN: Father, Mother, Grandparents Hx Kidney Disease: Mother Hx Stroke: Mother, Grandparents *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 negative: Tonsillar erythema, Tonsillar exudate - Neck Neck exam: Normal inspection, Full ROM. negative: Tenderness - Respiratory Respiratory exam: Normal lung sounds bilaterally. negative: Respiratory distre ss - Cardiovascular Cardiovascular Exam: Regular rate, Normal rhythm, Normal heart sounds - GI/Abdominal GI/Abdominal exam: Soft, Normal bowel sounds, Tenderness (The patient does have mild diffuse tenderness in all 4 quads.). negative: Distended, Guarding, Rebound, Rigid - Extremities Extremities exam: Normal inspection, Full ROM, Normal capillary refill. negative: Tenderness Course Vital Signs 04/03/19 11:20 Temperature 97.6 F Pulse Rate 74 Respiratory 18 Rate Blood Pressure 126/81 Pulse Ox 97 - Reevaluation(s) Reevaluation #1: I did discuss the normal lab work and CT with the patient. She is resting quietly but states she does still have some pain. The patient has a LONG hx of chronic pain similar to this so given the fact our workup including the CT was all normal I doubt any serious or surgical pathology. We will give the patient Gilson for home and a short course of Macrobid due to the possible UTI and have the patient return for any worsening symptoms. On exam the patient only has mid abdominal tenderness at this time and no lower abdominal tenderness. Her abdomen is also soft at this time. Due to that fact I do not feel she will benefit from a pelvic US. If the pain does not improve we may need to order that test if she returns. 04/03/19 14:09 Reevaluation #2: Additionally I did ask the patient if she drove here and she stated she got dropped off. I then did see the patient after discharge get into her car and drive away. 04/03/19 14:26 Medical Decision Making - Data Complexity MDM Data: Labs Ordered and/or Reviewed, X-Ray Ordered and/or Reviewed - Lab Data Result diagrams: 04/03/19 11:55 04/03/19 11:55 - Radiology Data Radiology results: Report reviewed (Abd CT: Neg for any acute issues or pathology.) Disposition Disposition: Discharge Clinical Impression: Abdominal pain Qualifiers: Abdominal location: generalized Qualified Code(s): R10.84 - Generalized abdominal pain Disposition: Home, Self-Care Condition: (2) Stable Instructions: Abdominal Pain (ED) Additional Instructions: Please take the Gilson for pain and also take the Macrobid. Please also take your home pain medicines as needed. Please see your family doctor later this week for recheck. Return to the ER in 12-16 hours for any persistent or worsening pain, fever, or vomiting. Prescriptions: Nitrofurantoin [place] [Macrobid] 100 mg PO BID #10 capsule Forms: Patient Portal Access Time of Disposition: 14:13 Quality - Quality Measures Quality Measures: N/A - Blood Pressure Screening View Details: Yes Does Patient Have Any of the Following: No Blood Pressure Classification: Pre-Hypertensive BP Reading Systolic Measurement: 126 Diastolic Measurement: 81 Screening for High Blood Pressure: < Pre-Hypertensive BP, F/U Documented > [G8950] Pre-Hypertensive Follow-up Interventions: Referral to alternative/primary care provider.
[2019-04-03] MEDS: ONDANSETRON HCL IV 4 MG/2 ML VIAL IV ONE (12:05)
[2019-04-03] MEDS: ACETAMINOPHEN 1,000 MG/100 ML BTL IVPB ONE (12:06)
[2019-04-03] MEDS: 0.9 % SODIUM CHLORIDE 1,000 ML BAG IV ONE (12:06)
[2019-04-03 12:09] LABS: ABSOLUTE NEUTROPHIL COUNT 5.97; BASO % 0.3 % (0-6); EOS % 2.4 % (0-6); GRAN % 58.5 % (47-80); LYMPH % 29.9 % (16-45); MEAN CELL VOLUME 81.4 fl (81-97); MEAN CORPUSCULAR HEMOGLOBIN 25.7 pg (27-33); MEAN CORPUSCULAR HGB CONC 31.6 g/dl (32-36); MEAN PLATELET VOLUME 9.6 fl (7.4-10.4); MONO % 8.9 % (0-9); PLATELET COUNT 284 K/uL (130-400); RED BLOOD COUNT 4.67 M/uL (3.80-5.40); RED CELL DISTRIBUTION WIDTH 13.1 % (11.5-14.5); WHITE BLOOD COUNT W/O DIFF 10.2 K/uL (4.2-12.2)
[2019-04-03 12:11] LABS: URINE APPEARANCE SL CLOUDY; URINE BILIRUBIN NEGATIVE (NEGATIVE); URINE BLOOD NEGATIVE (NEGATIVE); URINE COLOR YELLOW; URINE GLUCOSE (UA) NEGATIVE (NEGATIVE); URINE KETONE NEGATIVE (NEGATIVE); URINE LEUKOCYTE ESTERASE SMALL (NEGATIVE); URINE NITRITE NEGATIVE (NEGATIVE); URINE PROTEIN NEGATIVE (NEGATIVE); URINE UROBILINOGEN 0.2 E.U./dL (0.20 - 1.00)
[2019-04-03 12:18] LABS: BLOOD UREA NITROGEN 11 mg/dL (6-20); CREATININE 0.6 mg/dL (0.5-0.9); EST GLOMERULAR FILTRATION RATE > 60 mL/min
[2019-04-03 12:19] LABS: LIPASE 18 U/L (13-60); TOTAL PROTEIN 7.5 g/dL (6.6-8.7)
[2019-04-03 12:20] LABS: URINE RBC 0 - 2 (NONE SEEN)
[2019-04-03 12:21] LABS: GLUCOSE,RANDOM 86 mg/dL (74-109); URINE BACTERIA 4+; URINE MUCUS LIGHT
[2019-04-03 12:24] LABS: ALB/GLOB RATIO 1.1 (1.1-1.8); ALBUMIN 3.9 g/dL (4.0-5.0); ALKALINE PHOSPHATASE 73 U/L (35-104); ALT/SGPT 17 U/L (<33); AST/SGOT 14 U/L (10.0-35.0)
[2019-04-03] MEDS: KETOROLAC 30 MG/ML VIAL IVP ONE (12:31)
--- NOTE | 2019-04-03 14:04 | CT SCAN REPORT ---
EXAMINATION: CT Abdomen and Pelvis without IV Contrast EXAM DATE: 04/03/2019 1:28 PM TECHNIQUE: Standard protocol CT imaging of the abdomen and pelvis was performed without intravenous c ontrast. INDICATION: Flank pain COMPARISON: CT abdomen and pelvis 12/22/2018 ENCOUNTER: Not applicable CT ABDOMEN AND PELVIS FINDINGS: Lung Bases: Included extent of the lung bases are clear. Hepatobiliary: There is slight fatty infiltration of the liver. Margin is otherwise smooth. The gallb ladder is absent. There is no biliary dilatation. Pancreas: The pancreas is normal. Spleen: The spleen is not enlarged. Adrenals: The adrenal glands are normal. Kidneys, Ureters, & Bladder: Both kidneys have a normal size and morphology. There is no hydronephro sis. A punctate 2 mm calculus is suspected at the upper portion of the right collecting system. No le ft renal calculi are seen.Both ureters have a normal course and caliber and the urinary bladder a nor mal morphology and uniform wall thickness. No ureteral or bladder calculi are identified. Gastrointestinal: The stomach and small bowel are normal with no obstruction or inflammation. The serjio endix is normal. The large bowel is within normal limits. Reproductive Organs: Unremarkable Lymphatic System: There is no adenopathy within the abdomen or pelvis. Vasculature: Normal caliber abdominal aorta Peritoneum: No free fluid, free air, or inflammation Abdominal wall & Musculoskeletal: No suspicious bone lesions. Assessment of the solid organs, soft tissues, and vascular structures is overall limited on noncontra st imaging, IMPRESSION: 1. Nonobstructing 2 mm right renal calculus. No findings to indicate obstructive uropathy. 2. No acute process of the abdomen and pelvis. Dictated by: Rc Hauser DO on 04/03/2019 1:58 PM. .
[2019-04-03] MEDS: HYDROCODONE/APAP 5/325MG TABLET PO ONE (14:21)
== END 2019-04-03 14:29 | disposition home or self-care (01) ==
LOC: ER 10:38
DX: R10.84 Generalized abdominal pain (principal); R11.0 Nausea; M25.512 Pain in left shoulder
CPT/HCPCS: 99284 ×2; 96365; 96375; 83690; 85025; 80053; 81001; 84703; 74176; J1885; J2405; J7030

== ENCOUNTER 2019-04-06 22:12 | Emergency (ER) | payer MEDICAID ==
[2019-04-06] MEDS ORDERED: KETOROLAC 30 MG/ML VIAL IVP ONE (22:22)
[2019-04-06] MEDS ORDERED: ACETAMINOPHEN 1,000 MG/100 ML BTL IVPB ONE (22:22)
--- NOTE | 2019-04-06 22:27 | Emergency Department Record ---
History of Present Illness - General Chief Complaint: Abdominal Pain Stated Complaint: ABDOMINAL PAIN Time Seen by Provider: 04/06/19 22:13 Source: Patient Mode of Arrival: Ambulatory Limitations: No limitations - History of Present Illness Initial Comments: 28 yo female presents with recurrent abdominal pain. The patient developed right sided pain during her sleep on the . The pain is over the right upper side. The pain is sharp and fairly constant. No fever. She has had some decrease in appetite. She has had her gall bladder removed. No diarrhea. She has a history of PCOS. No flank pain. No dysuria. No rash. No chest pain. No cough. No shortness of breath. At times the pain radiates to the left upper back. No cough. She had a CT scan in the ED on 04/02 that was unremarkable. MD Complaint: Abdominal pain -: Days(s) Location: RUQ Radiation: Back Severity: Moderate Severity scale (1-10): 7 Quality: Other Consistency: Constant Improves With: Nothing Worsens With: Movement, Other Associated Symptoms: Other - Related Data LMP (females 10-50): 3 months ago Patient : No Home Medications Medication Instructions Recorded Confirmed Last Taken Nitrofurantoin [place] 100 mg PO BID 04/06/19 04/06/19 04/06/19 [Nitrofurantoin] Previous Rx's Medication Instructions Recorded Cephalexin [Keflex] 500 mg PO QID #40 cap 04/06/19 Allergies Allergy/AdvReac Type Severity Reaction Status Date / Time marijuana Allergy ANAPHYLAXIS Unverified 02/08/19 14:18 scallops Allergy HIVES Unverified 02/08/19 14:18 Travel Screening - Travel/Exposure Within Last 30 Days Have you traveled within the last 30 days?: No Review of Systems Constitutional: Denies: Chills, Fever, Malaise, Weakness Eyes: Denies: Eye discharge ENT: Denies: Congestion, Throat pain Respiratory: Denies: Cough, Dyspnea Cardiovascular: Denies: Chest pain, Palpitations, Syncope Endocrine: Denies: Fatigue Gastrointestinal: Reports: Abdominal pain, Nausea. Denies: Diarrhea, Vomiting Genitourinary: Reports: Abnormal menses (chronically irregular). 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 - ENDOCRINE Hx Endocrine Disorders: Yes Hx Diabetes: Yes Comment:: pre diabetic - MUSCULOSKELETAL Hx Musculoskeletal Disorders: No - PSYCH Hx Psych Problems: Yes Comment:: Autism - HEMATOLOGY/ONCOLOGY Hx Hematology/Oncology Disorders: Yes Hx Chemotherapy: No Hx Radiation Therapy: No Comment:: uterine and cervical Family Medical History Any Significant Family History?: Yes Hx Alcohol Use: Father, Brother/Sister Hx Anxiety: Father, Mother, Brother/Sister, Grandparents Hx Depression: Father, Mother, Brother/Sister, Grandparents Hx Diabetes: Mother, Grandparents Hx Heart Disease: Father, Mother, Grandparents Hx HTN: Father, Mother, Grandparents Hx Kidney Disease: Mother Hx Stroke: Mother, Grandparents *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 negative: Conjunctival injection, Scleral icterus - ENT ENT exam: Normal exam, Mucous membranes moist Ear exam: Normal external inspection Nasal Exam: Normal inspection Mouth exam: Normal external inspection - Neck Neck exam: Normal inspection - Respiratory Respiratory exam: Normal lung sounds bilaterally. negative: Respiratory distress - Cardiovascular Cardiovascular Exam: Regular rate, Normal rhythm, Normal heart sounds - GI/Abdominal GI/Abdominal exam: Soft, Tenderness, Other (The abdomen is obese. It is very soft. No guarding or rebound. She is tender in the RUQ other mata no reproducible tenderness). negative: Distended, Guarding, Rebound, Rigid - Rectal Rectal exam: Deferred - exam: Deferred - Extremities Extremities exam: Normal inspection - Back Back exam: Denies: CVA tenderness (R), CVA tenderness (L), Paraspinal tenderness , Rash noted, Tenderness - Neurological Neurological exam: Alert, Oriented X3 - Psychiatric Psychiatric exam: Normal affect, Normal mood - Skin Skin exam: Dry, Intact, Normal color, Warm Course Vital Signs 04/06/19 22:16 Temperature 98.2 F Pulse Rate [ 90 Pulse Ox Probe] Respiratory 20 Rate Blood Pressure 111/73 [Left Arm] Pulse Ox 98 - Reevaluation(s) Reevaluation #1: The Vitals were reviewed No significant acute abnormality EMR reviewed from the prior visit Prior CT scan was removed 04/06/19 22:42 The CBC is normal 04/06/19 22:42 04/06/19 22:46 The lipase is normal The CMP is normal 04/06/19 23:24 Prior culture was mixed lima 04/06/19 23:25 She has had 6 dose of macrobid so she will be changed to Keflex given the WBCs, Bacteria, and trace LE. She was encouraged to call her PCP tomorrow for follow up as well We discussed returning for an US if not improving Medical Decision Making - Lab Data Result diagrams: 04/06/19 22:25 04/06/19 22:25 Disposition Disposition: Discharge Clinical Impression: Abdominal pain, Urinary tract infection Condition: (1) Good Instructions: Abdominal Pain (ED), Urinary Tract Infection in Women (ED) Additional Instructions: Review this ER visit and the tests performed with your family doctor Call your doctor for the next available follow up appointment Return to the ER for a recheck immediately if worse, any new concerns or questions Take the prescriptions provided as directed Prescriptions: Cephalexin [Keflex] 500 mg PO QID #40 cap Forms: Patient Portal Access Time of Disposition: 23:24 Quality - Quality Measures Quality Measures: N/A - Blood Pressure Screening Does Patient Have Any of the Following: No Blood Pressure Classification: Normal BP Reading Systolic Measurement: 111 Diastolic Measurement: 73 Screening for High Blood Pressure: < Normal BP, F/U Not Required > [G8783]
[2019-04-06 22:33] LABS: BASO % 0.2 % (0-6); EOS % 1.7 % (0-6); GRAN % 60.1 % (47-80); HEMATOCRIT 38.6 % (35.0-47.0); HEMOGLOBIN 12.4 gm/dl (11.6-16.0); LYMPH % 30.7 % (16-45); MEAN CELL VOLUME 81.1 fl (81-97); MEAN CORPUSCULAR HEMOGLOBIN 26.1 pg (27-33); MEAN CORPUSCULAR HGB CONC 32.1 g/dl (32-36); MEAN PLATELET VOLUME 9.6 fl (7.4-10.4); MONO % 7.3 % (0-9); PLATELET COUNT 311 K/uL (130-400); RED BLOOD COUNT 4.76 M/uL (3.80-5.40); RED CELL DISTRIBUTION WIDTH 13.1 % (11.5-14.5); WHITE BLOOD COUNT W/O DIFF 11.3 K/uL (4.2-12.2)
[2019-04-06 22:42] LABS: BLOOD UREA NITROGEN 12 mg/dL (6-20); CREATININE 0.7 mg/dL (0.5-0.9); EST GLOMERULAR FILTRATION RATE > 60 mL/min; TOTAL PROTEIN 7.7 g/dL (6.6-8.7)
[2019-04-06 22:43] LABS: LIPASE 20 U/L (13-60)
[2019-04-06 22:45] LABS: GLUCOSE,RANDOM 98 mg/dL (74-109)
[2019-04-06 22:46] LABS: URINE APPEARANCE CLEAR; URINE BILIRUBIN NEGATIVE (NEGATIVE); URINE BLOOD NEGATIVE (NEGATIVE); URINE COLOR YELLOW; URINE GLUCOSE (UA) NEGATIVE (NEGATIVE); URINE KETONE NEGATIVE (NEGATIVE); URINE LEUKOCYTE ESTERASE TRACE (NEGATIVE); URINE NITRITE NEGATIVE (NEGATIVE); URINE PROTEIN NEGATIVE (NEGATIVE); URINE UROBILINOGEN 0.2 E.U./dL (0.20 - 1.00)
[2019-04-06 22:47] LABS: ALB/GLOB RATIO 1.1 (1.1-1.8); ALKALINE PHOSPHATASE 77 U/L (35-104); ALT/SGPT 17 U/L (<33); AST/SGOT 15 U/L (10.0-35.0)
[2019-04-06 22:55] LABS: URINE BACTERIA 2+; URINE EPITHELIAL CELLS 0 - 2 (FEW); URINE RBC 0 - 2 (NONE SEEN)
[2019-04-06 22:56] LABS: HCG,QUALITATIVE URINE NEGATIVE (NEGATIVE)
[2019-04-06] MEDS ORDERED: HYDROCODONE/APAP 5/325MG TABLET PO ONE (23:20)
[2019-04-06] MEDS ORDERED: CEPHALEXIN 500 MG CAPSULE PO STA (23:20)
== END 2019-04-06 23:35 | disposition home or self-care (01) ==
LOC: ER 22:12
DX: N39.0 Urinary tract infection, site not specified (principal); R10.11 Right upper quadrant pain; E11.9 Type 2 diabetes mellitus without complications
CPT/HCPCS: 99284 ×2; 96365; 96375; 83690; 85025; 80053; 81001; 81025; J1885

== ENCOUNTER 2019-06-13 02:47 | Emergency (ER) | payer MEDICAID ==
--- NOTE | 2019-06-13 03:00 | Emergency Department Record ---
History of Present Illness - General Chief complaint: ENT Stated complaint: THROAT PAIN Time Seen by Provider: 06/13/19 02:50 Source: Patient Mode of Arrival: Ambulatory Limitations: No limitations - History of Present Illness Initial comments: 28 yo female presents with cough, congestion and some sore throat. She denies any nausea, vomiting or diarrhea. The onset was about Wednesday or Wednesday. The nasal drainage and cough have been clear with the production. She did have her tonsils out prior. No rash. No abdominal pain. No dysuria. She is eating and drinking. Cold makes the throat feel better. Vandana Smart is her PCP. complaint: Sore throat, Other (Cough) -: Days(s) Location: Throat Severity: Moderate Quality: Aching Consistency: Constant Improves with: Cold therapy Worsens with: Swallowing Context- Dental: Poor dental care - Related Data Previous Rx's Medication Instructions Recorded Azithromycin [Zithromax] 250 mg PO DAILY #4 tab 06/13/19 Allergies Allergy/AdvReac Type Severity Reaction Status Date / Time marijuana Allergy ANAPHYLAXIS Verified 06/13/19 02:52 scallops Allergy HIVES Verified 06/13/19 02:52 Review of Systems Constitutional: Reports: Fever. Denies: Chills, Malaise, Weakness Eyes: Denies: Eye discharge, Eye pain, Photophobia, Vision change ENT: Reports: Congestion, Throat pain. Denies: Dental pain, Ear pain Respiratory: Reports: Cough. 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 - ENDOCRINE Hx Endocrine Disorders: Yes Hx Diabetes: Yes Comment:: pre diabetic - MUSCULOSKELETAL Hx Musculoskeletal Disorders: No - PSYCH Hx Psych Problems: Yes Comment:: Autism - HEMATOLOGY/ONCOLOGY Hx Hematology/Oncology Disorders: Yes Hx Chemotherapy: No Hx Radiation Therapy: No Comment:: uterine and cervical Family Medical History Hx Alcohol Use: Father, Brother/Sister Hx Anxiety: Father, Mother, Brother/Sister, Grandparents Hx Depression: Father, Mother, Brother/Sister, Grandparents Hx Diabetes: Mother, Grandparents Hx Heart Disease: Father, Mother, Grandparents Hx HTN: Father, Mother, Grandparents Hx Kidney Disease: Mother Hx Stroke: Mother, Grandparents *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 negative: Conjunctival injection, Scleral icterus - ENT ENT exam: Normal exam, Mucous membranes moist, Normal orophraynx, TM's normal bilaterally. negative: Mucous membranes dry Ear exam: Normal external inspection Nasal Exam: Discharge Mouth exam: Normal external inspection Teeth exam: Normal inspection Throat exam: Tonsillar erythema - Neck Neck exam: Normal inspection, Full ROM. negative: Lymphadenopathy, Meningismus, Tenderness - Respiratory Respiratory exam: Normal lung sounds bilaterally. negative: Accessory muscle use, Decreased breath sounds, Prolonged expiratory, Rhonchi, Stridor, Wheezes - Cardiovascular Cardiovascular Exam: Regular rate, Normal rhythm, Normal heart sounds - Rectal Rectal exam: Deferred - exam: Deferred - Extremities Extremities exam: Normal inspection - Back Back exam: Denies: CVA tenderness (R), CVA tenderness (L) - Neurological Neurological exam: Alert, Oriented X3 - Psychiatric Psychiatric exam: Normal affect, Normal mood. negative: Agitated, Anxious - Skin Skin exam: Dry, Intact, Normal color, Warm Course - Reevaluation(s) Reevaluation #1: 06/13/19 03:35 The vitals were reviewed No significant abnormality No fever, tachycardia or hypoxia The Influenza swabs were negative Disposition Disposition: Discharge Clinical Impression: Bronchitis Disposition: Home, Self-Care Condition: (1) Good Instructions: Acute Bronchitis (ED) Additional Instructions: Review this ER visit and the tests performed with your family doctor Call your doctor for the next available follow up appointment Return to the ER for a recheck immediately if worse, any new concerns or questions Take the prescriptions provided as directed Prescriptions: Azithromycin [Zithromax] 250 mg PO DAILY #4 tab Forms: Patient Portal Access Time of Disposition: 03:36 Quality - Quality Measures Quality Measures: N/A - Blood Pressure Screening Does Patient Have Any of the Following: No Blood Pressure Classification: Pre-Hypertensive BP Reading Systolic Measurement: 124 Diastolic Measurement: 88 Screening for High Blood Pressure: < Pre-Hypertensive BP, F/U Documented > [G8950] Pre-Hypertensive Follow-up Interventions: Referral to alternative/primary care provider.
[2019-06-13] MEDS ORDERED: DEXAMETHASONE SOD PHOSPHATE 10MG/ML VIAL PO ONE (03:04)
[2019-06-13 03:32] LABS: INFLUENZA A NEGATIVE (NEGATIVE); INFLUENZA B NEGATIVE (NEGATIVE)
[2019-06-13] MEDS ORDERED: AZITHROMYCIN 500 MG TABLET PO ONE (03:36)
== END 2019-06-13 03:43 | disposition home or self-care (01) ==
LOC: ER 02:47
DX: J20.9 Acute bronchitis, unspecified (principal); E11.9 Type 2 diabetes mellitus without complications; R06.00 Dyspnea, unspecified
CPT/HCPCS: 87400; 99283